=== PATIENT | female | born 1950 | race Caucasian/White ===

== ENCOUNTER → 2019-06-08 | Outpatient (CLI) | payer BC ==
[2019-05-19 14:38] VITALS: BP 151/86
[~2019-06-08] MED LIST: CONTRAST GIVEN. MC PRN; CYCL10TA2 PO; IOHEXOL 300 MG/ML 100ML VIAL. IV ONE; LOSA100T14 PO; METO-247 PO; Metoprolol PO; NAPR-514 PO; NAPR-695 PO; Nicotine 21MG TD; PANT40TA77 PO; POLY17PO28 PO; POTA20TA4 PO; TRAZ-123 PO
--- NOTE | 2019-06-08 09:51 | RAD ---
Examination: CT HEAD WO/W CONTRAST History: Non-small cell lung cancer Comparison/Correlation: None Findings: Axial images of the head were obtained prior to and following IV contrast. Coronal reformatted images of the postcontrast series is provided. Moderate size bifrontal subdural hygromas are present. Advanced atrophy is present. No intracranial hemorrhage, midline shift, or mass effect. No sizable aneurysm identified on postcontrast imaging. No abnormal enhancement to suggest the presence of a mass lesion. Enhancement is symmetric and unremarkable. Dominant right vertebral artery is seen. The vertebral artery is diminutive at its distal aspect. Bony structures are unremarkable. Globes and optic nerves are unremarkable. Extraconal muscles are unremarkable. Partially visualized paranasal sinuses are unremarkable. Mastoid air cells are clear. Impression: Moderate-sized bilateral frontal subdural hygromas. No mass lesion or suspicious enhancement identified. PQRS Compliance Statement: One or more of the following individualized dose reduction techniques were utilized for this examination: 1. Automated exposure control 2. Adjustment of the mA and/or kV according to patient size 3. Use of iterative reconstruction technique Electronically signed by: Fortino Puga MD (06/08/2019 9:48 AM) [facility]
--- NOTE | 2019-06-08 16:55 | RAD ---
EXAMINATION: PET W CT SKULL TO MIDTHIGH HISTORY: Non-small cell lung cancer initial staging COMPARISON/CORRELATION: 05/16/2019 CT chest without contrast, 05/13/2019 CT abdomen and pelvis with IV contrast FINDINGS: Net dose 14.4 mCi F-18 FDG was administered intravenously for purposes of PET/CT exam. Blood glucose level at the time of radiotracer administration was 108 mg/dL. Imaging was performed from the skull base to the proximal thighs. Hepatic reference uptake is SUV max of 1.8 . Uptake of the partially visualized head and neck is unremarkable. Incidental note is made of bifrontal subdural hygromas of moderate size. Right upper lobe mass corresponding to the previous CT exam which extends along the right side of the mediastinum and hilum to the anterolateral pleural is present with markedly intense uptake of radiotracer with SUV max up to 14.1. Enlarged precarinal lymph node conglomeration appears to have mildly increased in size measuring 2.9 cm x 3.8 cm on axial image 75 since the prior exam. This represents an increase in size of 0.3 cm x 0.5 cm. SUV max of 15 is present. Right lower paratracheal lymph nodes are present with abnormal uptake. Right hilar uptake is evident at the site of a calcified mass or calcified lymph nodes. This has SUV max of 13. At the right costophrenic sulcus, there is a 1.8 cm x 1.5 cm nodule which is increased in size since the previous exam by 0.8 cm x 0.5 cm. Intense uptake is present with SUV max of 11.5. Notable increase in 2 additional right lower lung field nodules since 05/13/2019 CT abdomen and pelvis with contrast is noted. One of these nodules on axial image 102 of series 3 measures 1 cm x 0.8 cm compared to the previous exam which this finding measured up to 0.33 cm in maximum diameter. An additional more medially located right lung field nodule on the same image currently measures up to 0.9 cm whereas previously it measured 0.6 cm. Intense uptake at these nodules is present with SUV maximum of 3.9. Left suprahilar spiculated mass is again seen. At the midthoracic level, there is a juxtapleural nodule measuring 0.9 cm diameter which is increased by 0.2 cm compared to the prior exam. Additional left lower lung field nodules are also present more inferiorly and these also have increased in size since the prior exam. One of these on axial image 105 measures 1.6 cm x 1 cm compared to previously where it measured 0.83 cm x 0.73 cm. Intense uptake noted. Substernal pulmonary nodules at the midthoracic level also has intense uptake. Centrilobular emphysematous involvement of the lung dawn noted. The inferior aspect of the right hepatic lobe, intense uptake is present with SUV max of 14.6. Cholecystectomy noted. Contrast incidentally seen within the kidneys, ureters, and urinary bladder from earlier performed CT exam. No other foci of abnormal uptake involving the abdomen or pelvis. Nodularity of the adrenal glands is present without significant uptake and as a result this very likely benign adenomatous involvement. Incidental note is made of significant calcific involvement of the distal abdominal aorta and iliac arteries. Diverticulosis of the colon is seen. Left buttock region spinal stimulator device with leads terminating at the low thoracic spine canal level noted. No abnormal uptake at the body compression deformity. No abnormal uptake at the T12 wedge compression deformity. Degenerative disc space narrowing of the lumbar spine noted at multiple levels. IMPRESSION: Large right upper midlung mass is present with intense uptake. Decreased atelectasis about the mass in the interval seen. Multiple pulmonary nodules have intense uptake and many have increased in size. Lymphadenopathy is identified with intense uptake and also has increased in size. Findings are compatible with patient's known non-small cell lung cancer and metastases. Considering the significant increase in size of the pulmonary nodules and some of the mediastinal lymph nodes and in the few weeks since the prior CT exams, infectious etiology should be considered. Uptake involving the right hepatic lobe inferiorly is intense compatible with metastatic or other neoplastic process. PQRS Compliance Statement: One or more of the following individualized dose reduction techniques were utilized for this examination: 1. Automated exposure control 2. Adjustment of the mA and/or kV according to patient size 3. Use of iterative reconstruction technique Electronically signed by: Fortino Puga MD (06/08/2019 4:52 PM) [facility]
== END | disposition home or self-care (01) ==
LOC: PETSC 07:29
PROVIDERS: ATTEND Internal Medicine Hematology & Oncology
DX: G96.0 Cerebrospinal fluid leak (principal); J43.2 Centrilobular emphysema; K57.30 Diverticulosis of large intestine without perforation or abscess without bleeding; C34.11 Malignant neoplasm of upper lobe, right bronchus or lung; Z90.49 Acquired absence of other specified parts of digestive tract
CPT/HCPCS: 70470; 78815; A9552; Q9967

== ENCOUNTER 2019-06-14 08:45 | Outpatient (CLI) | payer BC ==
[~2019-06-14] VITALS: Ht 157.5 cm; Wt 45.8 kg
[2019-06-14] VITALS (8 sets, daily range): BP systolic 131–164; BP diastolic 68–95
[~2019-06-14 08:45] MED LIST changes: -CONTRAST GIVEN. MC PRN; -IOHEXOL 300 MG/ML 100ML VIAL. IV ONE; -NAPR-514 PO
[2019-06-14] MEDS ORDERED: LIDOCAINE 1%/EPI 1:100,000 20 ML VIAL. ONE (08:59)
[2019-06-14] MEDS ORDERED: HEPARIN PF 500 UNIT/5 ML DISP.SYRIN. IVP ONE (08:59)
[2019-06-14 09:22] LABS: BASO # 0.1 x10^3/uL (0.0-0.2); BASO % 1 % (0-3); EOS # 0.8 x10^3/uL (0.0-0.7); EOS % 10 % (0-3); HEMATOCRIT 44.5 % (36.0-47.0); HEMOGLOBIN 14.7 g/dL (12.0-15.5); LYMPH # 1.2 x10^3/uL (1.0-4.8); LYMPH % 13 % (24-48); MEAN CORPUSCULAR HEMOGLOBIN 30 pg (25-35); MEAN CORPUSCULAR HGB CONC 33 g/dL (31-37); MEAN CORPUSCULAR VOLUME 91 fL (79-100); MONO # 0.6 x10^3/uL (0.0-1.1); MONO % 7 % (0-9); NEUT # 6.2 x10^3/uL (1.8-7.7); NEUT % 70 % (31-73); PLATELET COUNT 207 x10^3/uL (140-400); RED BLOOD COUNT 4.88 x10^6/uL (3.50-5.40); RED CELL DISTRIBUTION WIDTH 14.9 % (11.5-14.5); WHITE BLOOD COUNT 8.9 x10^3/uL (4.0-11.0)
[2019-06-14] MEDS ORDERED: CYCL10TA2 PO (09:30)
[2019-06-14] MEDS ORDERED: NAPR-514 PO (09:30)
[2019-06-14] MEDS ORDERED: ceFAZolin SODIUM IV Push 1 GM VIAL. IVP ONE ×2 (09:49→10:15)
[2019-06-14] MEDS ORDERED: MIDAZOLAM HCL/PF 2 MG/2 ML VIAL. ONE (09:49)
[2019-06-14] MEDS ORDERED: fentaNYL PF VIAL 100 MCG/2 ML VIAL ONE (09:49)
[2019-06-14] MEDS ORDERED: LIDOCAINE 1%/EPI 1:100,000 20 ML VIAL. INJ ONE (10:15)
[2019-06-14] MEDS ORDERED: MIDAZOLAM HCL/PF 2 MG/2 ML VIAL. IV ONE (10:15)
[2019-06-14] MEDS ORDERED: fentaNYL PF VIAL 100 MCG/2 ML VIAL IV ONE (10:15)
[2019-06-14] MEDS ORDERED: HEPARIN PF 500 UNIT/5 ML DISP.SYRIN. IVP PRN (10:15)
--- NOTE | 2019-06-14 10:40 | PDOC ---
MODERATE SEDATION ASSESSMENT RISKS/ALTERNATIVES Risks/Alternatives Risks and alternatives of this type of sedation and procedure discussed with: RISK/ALTERNATIVES: Patient H & P ON CHART H & P H & P on chart and reviewed for co-morbid conditions and appropriate labs. H&P ON CHART: Yes STATUS PREG STATUS ASSESSED: Yes MEDS/ALLERGIES REVIEWED Meds/Allergies Reviewed Medications and Allergies including time and route of recently administered narcotics and sedatives. MEDS/ALLERGIES REVIEWED: Yes ASA RATING ASA RATING: II AIRWAY ASSESSMENT Airway Assessment Airway patency, oral function limitations, presence of caps, crowns, dentures, partials, and ability to extend neck assessed. AIRWAY ASSESSMENT: Yes MALLAMPATI SCORE MALLAMPATI SCORE: II PRE-SEDATION ASSESSMENT PRE-SEDATION ASSESSMENT: Yes MIREYA MELENDREZ MD June 14, 2019 10:40
--- NOTE | 2019-06-14 10:40 | PDOC ---
BRIEF OPERATIVE NOTE Pre-Op Diagnosis lung cancer Post-Op Diagnosis same Procedure Performed Port Surgeon Meenakshi Anesthesia Type: Conscious Sedation Findings left IJ port suitable for use Complications None MIREYA MELENDREZ MD June 14, 2019 10:40
--- NOTE | 2019-06-14 13:47 | RAD ---
Procedure: Port-A-Cath placement Clinical Indication: Adult female with lung cancer Sedation: Conscious sedation was administered with a total intraprocedural ilha-hw-[id number] time of 30 minutes. The patient was monitored by a qualified independent observer throughout the time of sedation. Please refer to the medical record for exact doses of medications utilized to achieve moderate sedation. Antibiotics: Antibiotic was administered intravenously within 1 hour of the procedure start time. Exposure: Fluoro Time: Less than 1 minute Images: 1 Contrast: None Sterility: All elements of maximal sterile barrier technique including the use of a cap, mask, sterile gown, sterile gloves, large sterile sheet, appropriate hand hygiene, and 2% chlorhexidine for cutaneous antisepsis (or acceptable alternative antiseptic per current guidelines) were followed for this procedure. Consent: The procedure was explained in its entirety to the patient or the patients designated operations representative by a member of the treatment team, including a discussion of the risks, benefits and commonly accepted alternatives to the procedure, as well as the expected consequences of no therapy whatsoever. Discussion of the risks included, but was not limited to, those that are most frequent and those that are rare but possibly severe or life-threatening, as well as the possibility of unforeseen complications. Technique and Findings: Ultrasound interrogation of the left neck revealed patency and compressibility of the internal jugular vein. A hardcopy ultrasound image was recorded as a 21-gauge micropuncture needle was used to gain access to this vessel. The needle was exchanged over a wire for a peel-away sheath. The skin over the ipsilateral anterior chest wall was then copiously anesthetized with 1% lidocaine plus epinephrine, and a small dermatotomy was made. Blunt dissection techniques were used to create a pocket for the port. The port was then tunneled subcutaneously towards the neck dermatotomy then deployed under fluoroscopic guidance through the peel-away sheath such that the distal tip resided in the proximal right atrium. The port was accessed and found to flush and aspirate with ease. The port was packed with heparin. The pocket was copiously irrigated with sterile saline then closed with deep interrupted and running subcuticular 4-0 Vicryl suture. Dermabond was used to close the neck dermatotomy. Complications: No immediate Impression: 1. Ultrasound and fluoroscopic guided left IJ Port-A-Cath placement as described.
== END 2019-06-14 12:45 | disposition home or self-care (01) ==
LOC: INTRAD 08:45
PROVIDERS: ATTEND Internal Medicine Hematology & Oncology
DX: Z45.2 Encounter for adjustment and management of vascular access device (principal); C34.90 Malignant neoplasm of unspecified part of unspecified bronchus or lung; Z79.01 Long term (current) use of anticoagulants
CPT/HCPCS: 36415; 36561; 76937; 77001; 85025; 85610; 99152; 99153; C1751; C1769; C1892; J0690; J1642; J2250; J3010; J3490

== ENCOUNTER 2019-06-26 12:55 | Emergency (ER) | payer BC ==
[~2019-06-26] VITALS: Ht 157.5 cm; Wt 46.8 kg
[~2019-06-26 12:55] MED LIST changes: +NAPR-514 PO
[2019-06-26 13:10] VITALS: BP 162/77
--- NOTE | 2019-06-26 14:00 | PHYS DOC ---
Past Medical History Past Medical History: Cancer, COPD, Hypertension, Other Additional Past Medical Histor: LUNG CA Past Surgical History: No Surgical History Smoking Status: Current Every Day Smoker Alcohol Use: Occasionally General Adult EDM: Chief Complaint: OTHER COMPLAINTS HPI: HPI: 69-year-old female past medical history of newly diagnosed lung cancer started on chemo and radiation 1 week ago (1 round of chemo, 5 radiation txs), tobacco dependence with COPD on 2 L nasal cannula, presents to the ED from her radiation appointment with concern for low pulse oximetry. Patient arrived to the clinic without her baseline 2 L nasal cannula saturating in the 70s. 1 2 L nasal cannula was added she increased to 98%. Patient presented to the ED stating "I don't know why I am here, I feel fine." Pt reports she's tired after radiation and is requesting to go home and sleep. [facility] department sent to rule out PE. She was discharged from the hospital approximately 1 week ago due to alcohol induced pancreatitis-this is how her cancer was diagnosed. Patient denied and currently denies any fever, chills, sore throat, cough, chest pain or pressure or heaviness, dyspnea, hemoptysis, dyspnea on exertion, syncope, headache, leg swelling, neck stiffness, nausea, vomiting, diaphoresis or neurologic deficits. Review of Systems: Review of Systems: Constitutional: Denies fever or chills. [] Eyes: Denies change in visual acuity. [] HENT: Denies nasal congestion or sore throat. [] Respiratory: Denies cough or shortness of breath. [] Cardiovascular: Denies chest pain or edema. [] GI: Denies abdominal pain, nausea, vomiting, bloody stools or diarrhea. [] : Denies dysuria. [] Musculoskeletal: Denies back pain or joint pain. [] Integument: Denies rash. [] Neurologic: Denies headache, focal weakness or sensory changes. [] Endocrine: Denies polyuria or polydipsia. [] Lymphatic: Denies swollen glands. [] Psychiatric: Denies depression or anxiety. [] Allergies: Allergies: Allergies Coded Allergies Type Severity Reaction Last Updated Verified No Known Drug Allergies 06/19/19 No Physical Exam: PE: Constitutional: Well developed, well nourished, no acute distress, non-toxic appearance. [] HENT: Normocephalic, atraumatic, bilateral external ears normal, oropharynx moist, no oral exudates, nose normal. [] Eyes: PERRLA, EOMI, conjunctiva normal, no discharge. [] Neck: Normal range of motion, no tenderness, supple, no stridor. [] Cardiovascular:Heart rate regular rhythm, no murmur [] Lungs & Thorax: Bilateral breath sounds clear to auscultation, 98% on 2LNC Abdomen: Bowel sounds normal, soft, no tenderness, no masses, no pulsatile masses. [] Skin: Warm, dry, no erythema, no rash. [] Back: No tenderness, no CVA tenderness. [] Extremities: No tenderness, no cyanosis, no clubbing, ROM intact, no edema. [] Neurologic: Alert and oriented X 3, normal motor function, normal sensory function, no focal deficits noted. [] Psychologic: Affect normal, judgement normal, mood normal. [] Current Patient Data: Vital Signs: Vital Signs Date Time Temp Pulse Resp B/P (MAP) Pulse Ox O2 Delivery O2 Flow Rate FiO2 06/26/19 13:10 98.2 62 20 162/77 (105) 95 Nasal Cannula 2.0 98.2 EKG: EKG: [] Radiology/Procedures: Radiology/Procedures: IMAGING REPORT Signed PATIENT: CHICHI DE JESUS ACCOUNT: [id number] : 1950 LOCATION: ER AGE: 69 SEX: F EXAM STATUS: REG ER ORD. PHYSICIAN: SCOTTIE GARCIA DO REASON: desat and lung cancer PROCEDURE: CHEST AP ONLY CHEST AP ONLY 06/26/2019 1:18 PM INDICATION: Desaturation and 1 cancer COMPARISON: 05/19/2019 TECHNIQUE: Portable frontal view of the chest is provided. FINDINGS: The cardiomediastinal silhouette is within normal limits. Left chest wall infusion port catheter is identified with the distal tip projecting over the ventral junction. Spinal epidural leads are similar in position. There is increased consolidative change in the right upper lobe which may represent a postobstructive pneumonia or atelectasis. Previously seen masslike area of nodular consolidation in the right hilar distribution is obscured by surrounding consolidative change. There is increased nodular consolidation in the lung bases bilaterally. Small right pleural effusion with adjacent aggressive atelectasis versus infiltrate. No significant pulmonary vascular congestion or pneumothorax. Right apical pleural-parenchymal scarring is identified. No suspicious osseous abnormality. IMPRESSION: Interval increase in multifocal nodular airspace consolidation with more confluent consolidative change in the right upper lobe suspicious for postobstructive pneumonia or atelectasis with underlying progression of disease. Electronically signed by: Britt Vargas MD (06/26/2019 1:55 PM) [id number] DICTATED and SIGNED BY: BRITT VARGAS MD DATE: 06/26/19 [id number] Impression: Impression: Encounter for low pulse ox after noncompliance with NC-improved to baseline with 2L NC. Pt asymptomatic. Patient with medical decision-making capacity -would not wait for imaging results or discharge papers. Thinks ed visit is ridiculous stating "I'm tired, I just want to go home and sleep, I have no shortness of breath or chest pain). Pt left ama, would not wait for her DC papers. Encouraged strict ed return precautions for chest pain/dyspnea/sycnope. All of pts' questions were answered. Course & Med Decision Making: Course & Med Decision Making Pertinent Labs and Imaging studies reviewed. (See chart for details) Dragon Disclaimer: DragKiip Disclaimer: This electronic medical record was generated, in whole or in part, using a voice recognition dictation system. Departure Departure Impression: Primary Impression: Lung cancer Additional Impression: Abnormal pulse oximetry Disposition: 07 AGAINST MEDICAL ADVICE Condition: STABLE Referrals: MARÍA FRAGA MD (PCP) Patient Instructions: Oxygen Use at Home SCOTTIE GARCIA DO June 26, 2019 14:00
== END 2019-06-26 14:05 | disposition home or self-care (01) ==
LOC: ER 12:55
DX: C34.90 Malignant neoplasm of unspecified part of unspecified bronchus or lung (principal); R00.2 Palpitations; K85.20 Alcohol induced acute pancreatitis without necrosis or infection; J44.9 Chronic obstructive pulmonary disease, unspecified; I10 Essential (primary) hypertension; F17.200 Nicotine dependence, unspecified, uncomplicated
CPT/HCPCS: 71045; 99283

== ENCOUNTER → 2019-06-28 | Outpatient (CLI) | payer BC ==
[2019-06-26 13:10] VITALS: BP 162/77
[~2019-06-28] MED LIST changes: +CONTRAST GIVEN. MC PRN; +HEPARIN PF 500 UNIT/5 ML DISP.SYRIN. IVP ONE; +IOHEXOL 300 MG/ML 100ML VIAL. IV ONE
--- NOTE | 2019-06-28 13:23 | RAD ---
PQRS Compliance Statement: One or more of the following individualized dose reduction techniques were utilized for this examination: 1. Automated exposure control 2. Adjustment of the mA and/or kV according to patient size 3. Use of iterative reconstruction technique CT CHEST W/CONTRAST 06/28/2019 12:23 PM Indication: Non-small cell lung cancer COMPARISON: None available. TECHNIQUE: Multiple axial CT images of the chest were obtained after the intravenous administration of nonionic contrast. Coronal and sagittal reformats are provided. FINDINGS: Precarinal lymph node measures 3.9 x 3.2 cm, previously measuring 4.6 x 3.0 cm. AP window lymph node measures 3.4 x 2.0 cm, previously measuring 3.6 x 2.4 cm. There is increased consolidative change in the right upper lobe with likely increased postobstructive atelectasis versus pneumonitis. Enhancing masslike area of consolidation measures approximately 5.7 x 6.8 cm right hilar lymphadenopathy appears similar. There is increased adjacent interstitial thickening involving the posterior right upper lobe and superior segment right lower lobe. Interstitial pneumonitis is a differential consideration as is lymphangitic spread of tumor. There is a persistent small right pleural effusion, increased since prior examination. Solid noncalcified pulmonary nodules have increased in size. For example right lower lobe solid noncalcified pulmonary nodule measures 2.2 x 1.9 cm, previously measuring 1.6 x 1.6 cm on 06/08/2019 (series 2, image 47). Left lower lobe solid noncalcified pulmonary nodule has increased in size measuring 2.1 x 1.9 cm, previously measuring 1.6 x 1.5 cm. Heart size within normal limits. Left chest wall infusion catheter is in similar position. Pulmonary vasculature is intact. Thoracic aorta is ectatic measuring up to 3.4 cm the aortic arch. Right adrenal nodule is stable measuring 1.9 x 1.0 cm. No definite hepatic masses are identified. Stable inferior plate compression fracture at T10 with mild retropulsion. No suspicious osseous abnormality is identified. IMPRESSION: 1. Marginal decrease in size of mediastinal lymphadenopathy. 2. Multifocal solid noncalcified pulmonary nodules are increased in size as detailed above. 3. Small right pleural effusion, increased in size. Next on 4. Increased interstitial airspace disease in the right upper lobe and super segment right lower lobe. Aeration may be given for interstitial pneumonitis versus composed lymphangitic spread of tumor. Pulmonary emphysematous changes appear stable. 5. Stable right adrenal nodule. Electronically signed by: Mable Anne MD (06/28/2019 1:20 PM) [facility]
== END | disposition home or self-care (01) ==
LOC: CT 11:27
PROVIDERS: ATTEND Physician Assistant
DX: C34.11 Malignant neoplasm of upper lobe, right bronchus or lung (principal); J90 Pleural effusion, not elsewhere classified; R91.8 Other nonspecific abnormal finding of lung field; R59.0 Localized enlarged lymph nodes; E27.8 Other specified disorders of adrenal gland
CPT/HCPCS: 71260; Q9967

== ENCOUNTER → 2019-07-06 | Outpatient (CLI) | payer BC ==
[2019-06-26 13:10] VITALS: BP 162/77
[~2019-07-06] MED LIST changes: -CONTRAST GIVEN. MC PRN; -HEPARIN PF 500 UNIT/5 ML DISP.SYRIN. IVP ONE; -IOHEXOL 300 MG/ML 100ML VIAL. IV ONE
--- NOTE | 2019-07-17 12:07 | RESP ---
DATE OF SERVICE: 07/06/2019 SPIROMETRY REFERRED BY: Ana Culver PA-C The patient's FVC was 2.2, which is 76% predicted, FEV1 of 1.32, which is 62% predicted. FEV1/FVC ratio was reduced. No bronchodilators were given. The patient complained of lightheadedness and dizzy and also felt nauseous as a result. Diffusion capacity and lung volumes were not performed. IMPRESSION: 1. Spirometry findings consistent with moderate obstructive airway disease. 2. No bronchodilators given. MANPREET HARDEN MD DR: ALISON/abdullahi JOB#: [id number] / [id number] ANA Reilly PA-C
== END | disposition home or self-care (01) ==
LOC: PF 10:30
PROVIDERS: ATTEND Physician Assistant
DX: C34.11 Malignant neoplasm of upper lobe, right bronchus or lung (principal)
CPT/HCPCS: 94010

== ENCOUNTER → 2019-07-24 | Outpatient (CLI) | payer BC ==
[2019-06-26 13:10] VITALS: BP 162/77
[2019-07-24 12:03] LABS: CALCIUM 8.6 mg/dL (8.5-10.1); CREATININE 0.9 mg/dL (0.6-1.0); GFR 62.3; POTASSIUM 3.9 mmol/L (3.5-5.1)
[2019-07-24 12:09] LABS: ALBUMIN 2.5 g/dL (3.4-5.0); DIRECT BILIRUBIN 0.2 mg/dL (0.0-0.2); TOTAL BILIRUBIN 0.6 mg/dL (0.2-1.0); TOTAL PROTEIN 5.3 g/dL (6.4-8.2)
[2019-07-24 12:19] LABS: BASO % 0 % (0-3); EOS # 0.3 x10^3/uL (0.0-0.7); EOS % 4 % (0-3); HEMATOCRIT 40.7 % (36.0-47.0); HEMOGLOBIN 13.5 g/dL (12.0-15.5); LYMPH # 0.5 x10^3/uL (1.0-4.8); LYMPH % 6 % (24-48); MEAN CORPUSCULAR HEMOGLOBIN 30 pg (25-35); MEAN CORPUSCULAR HGB CONC 33 g/dL (31-37); MEAN CORPUSCULAR VOLUME 90 fL (79-100); MONO # 0.5 x10^3/uL (0.0-1.1); MONO % 6 % (0-9); NEUT # 6.6 x10^3/uL (1.8-7.7); NEUT % 84 % (31-73); PLATELET COUNT 129 x10^3/uL (140-400); RED BLOOD COUNT 4.55 x10^6/uL (3.50-5.40); RED CELL DISTRIBUTION WIDTH 16.3 % (11.5-14.5); WHITE BLOOD COUNT 7.8 x10^3/uL (4.0-11.0)
== END | disposition home or self-care (01) ==
LOC: SPEC 10:21
PROVIDERS: ATTEND Physician Assistant
DX: C34.11 Malignant neoplasm of upper lobe, right bronchus or lung (principal); I07.1 Rheumatic tricuspid insufficiency; I27.20 Pulmonary hypertension, unspecified; I05.9 Rheumatic mitral valve disease, unspecified
CPT/HCPCS: 36415; 80048; 80076; 83615; 84436; 84443; 85025

== ENCOUNTER → 2019-07-25 | Outpatient (CLI) | payer BC ==
[2019-06-26 13:10] VITALS: BP 162/77
--- NOTE | 2019-07-25 13:54 | CARD ---
MR#: [id number] Date of Study: 07/25/2019 Ordering Physician: ANA MOELLER, Referring Physician: ANA MOELLER, Tech: Kaylyn Mohamud MAXI APPROVED REPORT EXAM: Two-dimensional and M-mode echocardiogram with Doppler and color Doppler. Other Information Quality : Good INDICATION Peripheral Edema Lung Cancer 2D DIMENSIONS RVDd2.7 (2.9-3.5cm)Left Atrium(2D)3.0 (1.6-4.0cm) IVSd1.1 (0.7-1.1cm)Aortic Root(2D)2.5 (2.0-3.7cm) LVDd3.7 (3.9-5.9cm)LVOT Diameter1.9 (1.8-2.4cm) PWd0.9 (0.7-1.1cm)LVDs2.4 (2.5-4.0cm) FS (%) 35.0 %SV38.9 ml LVEF(%)65.1 (>50%) Aortic Valve AoV Peak Robb.146.4cm/sAoV VTI35.7cm AO Peak GR.8.6mmHgLVOT Peak Robb.124.1cm/s AO Mean GR.5mmHgAVA (VMAX)2.43cm2 MAXIM (VTI)2.60cm2 Mitral Valve MV E Dwioajfr02.4cm/sMV DECEL KECK193rc MV A Xobubbzx564.4cm/sE/A Ratio0.7 Tricuspid Valve TR P. Magupzkt835fy/sRAP [id number] TR Peak Gr.51ozSeBXHF69urGz Pulmonary Vein S1 Tezmqecx58.5cm/sD2 Obbdotqt40.4cm/s LEFT VENTRICLE The left ventricle cavity is small. There is normal left ventricular wall thickness. The left ventric ular systolic function is normal. The Ejection Fraction is 60-65%. There is normal LV segmental wall motion. Transmitral Doppler flow pattern is Grade I-abnormal relaxation pattern. RIGHT VENTRICLE The right ventricle is normal size. The right ventricular systolic function is normal. ATRIA The left atrium size is normal. The right atrium size is normal. The interatrial septum is intact wit h no evidence for an atrial septal defect or patent foramen ovale as noted on 2-D or Doppler imaging. AORTIC VALVE The aortic valve is calcified but opens well. Doppler and Color Flow revealed no significant aortic r egurgitation. There is no significant aortic valvular stenosis. MITRAL VALVE The mitral valve is calcified but opens well. Mitral annular calcification is mild. There is no evide nce of mitral valve prolapse. There is no mitral valve stenosis. Doppler and Color-flow revealed trac e mitral regurgitation. TRICUSPID VALVE The tricuspid valve is normal in structure and function. Doppler and Color Flow revealed mild tricusp id regurgitation. There is moderate-severe pulmonary hypertension. The PA pressure was estimated at 6 0 mmHg. There is no tricuspid valve stenosis. PULMONIC VALVE The pulmonic valve is not well visualized. Doppler and Color Flow revealed trace pulmonic valvular re gurgitation. There is no pulmonic valvular stenosis. GREAT VESSELS The aortic root is normal in size. The ascending aorta is not well seen. The IVC is normal in size an d collapses >50% with inspiration. PERICARDIAL EFFUSION There is no evidence of significant pericardial effusion. Critical Notification Critical Value: No <Conclusion> The left ventricular systolic function is normal. The Ejection Fraction is 60-65%. There is normal LV segmental wall motion. Transmitral Doppler flow pattern is Grade I-abnormal relaxation pattern. Trace mitral regurgitation. Mild tricuspid regurgitation. The PA pressure was estimated at 60 mmHg. There is no evidence of significant pericardial effusion. Signed by : Chuck Hanson, Electronically Approved : 07/25/2019 13:53:58
--- NOTE | 2019-07-25 14:04 | RAD ---
VENOUS LOWER EXT BILATERAL 07/25/2019 2:00 PM Clinical Information: Bilateral lower extremity swelling. Comparison: None. Technique: Multiple grayscale, color Doppler, and spectral Doppler sonographic images of the lower extremity venous structures were obtained. Findings: The right common femoral, femoral, and popliteal veins exhibit normal compression, respiratory phasicity, and augmentation. No intraluminal thrombi are identified. Color Doppler flow is demonstrated in the right posterior tibial veins. The left common femoral, femoral, and popliteal veins exhibit normal compression, respiratory phasicity, and augmentation. No intraluminal thrombi are identified. Color Doppler flow is demonstrated in the left posterior tibial veins. Greater saphenous veins are patent at the saphenofemoral junction. Impression: 1. No evidence of deep venous thrombosis. Electronically signed by: Mable Anne MD (07/25/2019 2:01 PM) [facility]
== END | disposition home or self-care (01) ==
LOC: ECHO 12:42
PROVIDERS: ATTEND Physician Assistant
DX: I07.1 Rheumatic tricuspid insufficiency (principal); C34.11 Malignant neoplasm of upper lobe, right bronchus or lung; I27.20 Pulmonary hypertension, unspecified
CPT/HCPCS: 93306; 93970

== ENCOUNTER → 2019-08-02 | Outpatient (CLI) | payer BC ==
[2019-08-02 13:11] LABS: BASO % 0 % (0-3); EOS % 0 % (0-3); HEMATOCRIT 36.2 % (36.0-47.0); HEMOGLOBIN 12.5 g/dL (12.0-15.5); LYMPH # 0.6 x10^3/uL (1.0-4.8); LYMPH % 10 % (24-48); MEAN CORPUSCULAR HEMOGLOBIN 31 pg (25-35); MEAN CORPUSCULAR HGB CONC 35 g/dL (31-37); MEAN CORPUSCULAR VOLUME 89 fL (79-100); MONO # 0.2 x10^3/uL (0.0-1.1); MONO % 3 % (0-9); NEUT # 4.8 x10^3/uL (1.8-7.7); NEUT % 87 % (31-73); PLATELET COUNT 141 x10^3/uL (140-400); RED BLOOD COUNT 4.07 x10^6/uL (3.50-5.40); RED CELL DISTRIBUTION WIDTH 17.1 % (11.5-14.5); WHITE BLOOD COUNT 5.6 x10^3/uL (4.0-11.0)
[2019-08-02 13:31] LABS: ALBUMIN 2.6 g/dL (3.4-5.0); CALCIUM 8.5 mg/dL (8.5-10.1); CREATININE 0.8 mg/dL (0.6-1.0); DIRECT BILIRUBIN 0.1 mg/dL (0.0-0.2); GFR 71.3; POTASSIUM 3.9 mmol/L (3.5-5.1); TOTAL BILIRUBIN 0.6 mg/dL (0.2-1.0); TOTAL PROTEIN 5.6 g/dL (6.4-8.2)
[2019-08-02 13:43] LABS: FREE T4 1.33 ng/dL (0.76-1.46); THYROID STIM HORMONE (TSH) 1.301 uIU/mL (0.358-3.74)
[2019-08-02 14:02] LABS: % BANDS 1 % (0-9); % LYMPHS 5 % (24-48); % MONOS 1 % (0-10); % SEGS 93 % (35-66)
[2019-08-02 14:03] LABS: ANISOCYTOSIS SLIGHT; PLT ESTIMATE ADEQUATE (ADEQUATE)
== END ==
LOC: ONCLAB 12:59
PROVIDERS: ATTEND Internal Medicine Hematology & Oncology
DX: C34.11 Malignant neoplasm of upper lobe, right bronchus or lung (principal)
CPT/HCPCS: 36415; 80048; 80076; 83615; 84439; 84443; 85007; 85025

== ENCOUNTER → 2019-08-09 | Outpatient (CLI) | payer BC ==
[2019-08-09 11:14] LABS: BASO % 0 % (0-3); EOS # 0.1 x10^3/uL (0.0-0.7); EOS % 2 % (0-3); HEMATOCRIT 37.3 % (36.0-47.0); HEMOGLOBIN 12.8 g/dL (12.0-15.5); LYMPH # 0.4 x10^3/uL (1.0-4.8); LYMPH % 5 % (24-48); MEAN CORPUSCULAR HEMOGLOBIN 31 pg (25-35); MEAN CORPUSCULAR HGB CONC 34 g/dL (31-37); MEAN CORPUSCULAR VOLUME 89 fL (79-100); MONO # 0.2 x10^3/uL (0.0-1.1); MONO % 3 % (0-9); NEUT # 6.3 x10^3/uL (1.8-7.7); NEUT % 90 % (31-73); PLATELET COUNT 181 x10^3/uL (140-400); RED BLOOD COUNT 4.19 x10^6/uL (3.50-5.40); RED CELL DISTRIBUTION WIDTH 18.4 % (11.5-14.5)
[2019-08-09 11:26] LABS: CALCIUM 8.6 mg/dL (8.5-10.1); CREATININE 0.9 mg/dL (0.6-1.0); GFR 62.3
[2019-08-09 11:32] LABS: ALBUMIN 2.9 g/dL (3.4-5.0); DIRECT BILIRUBIN 0.2 mg/dL (0.0-0.2); TOTAL BILIRUBIN 0.7 mg/dL (0.2-1.0)
== END ==
LOC: ONCLAB 10:49
PROVIDERS: ATTEND Physician Assistant
DX: C34.11 Malignant neoplasm of upper lobe, right bronchus or lung (principal)
CPT/HCPCS: 36415; 80048; 80076; 83615; 85025

== ENCOUNTER → 2019-08-14 | Outpatient (CLI) | payer BC | END | disposition home or self-care (01) | LOC: PF 08:49 | PROVIDERS: ATTEND Physician Assistant | DX: C34.11 Malignant neoplasm of upper lobe, right bronchus or lung (principal) | CPT/HCPCS: 94060; 94640; 94726; 94729; 94664 ==

== ENCOUNTER → 2019-08-16 | Outpatient (CLI) | payer BC ==
[2019-08-16 08:43] LABS: BASO % 1 % (0-3); EOS # 0.2 x10^3/uL (0.0-0.7); EOS % 3 % (0-3); HEMOGLOBIN 12.5 g/dL (12.0-15.5); LYMPH # 0.6 x10^3/uL (1.0-4.8); LYMPH % 10 % (24-48); MEAN CORPUSCULAR HEMOGLOBIN 31 pg (25-35); MEAN CORPUSCULAR HGB CONC 34 g/dL (31-37); MEAN CORPUSCULAR VOLUME 90 fL (79-100); MONO # 0.5 x10^3/uL (0.0-1.1); MONO % 8 % (0-9); NEUT # 4.5 x10^3/uL (1.8-7.7); NEUT % 78 % (31-73); PLATELET COUNT 173 x10^3/uL (140-400); RED BLOOD COUNT 4.12 x10^6/uL (3.50-5.40); WHITE BLOOD COUNT 5.8 x10^3/uL (4.0-11.0)
[2019-08-16 08:54] LABS: CALCIUM 8.9 mg/dL (8.5-10.1); CREATININE 0.6 mg/dL (0.6-1.0); GFR 99.4; POTASSIUM 3.3 mmol/L (3.5-5.1)
[2019-08-16 09:07] LABS: ALBUMIN 2.9 g/dL (3.4-5.0); ALBUMIN/GLOBULIN RATIO 0.9 (1.0-1.7); TOTAL BILIRUBIN 0.7 mg/dL (0.2-1.0); TOTAL PROTEIN 6.1 g/dL (6.4-8.2)
== END ==
LOC: ONCLAB 08:01
PROVIDERS: ATTEND Internal Medicine Hematology & Oncology
DX: C34.11 Malignant neoplasm of upper lobe, right bronchus or lung (principal)
CPT/HCPCS: 36415; 80053; 83615; 85025

== ENCOUNTER 2019-08-23 10:23 | Emergency (ER) | payer BC ==
[~2019-08-23] VITALS: Ht 157.5 cm; Wt 41.8 kg
--- NOTE | 2019-08-23 11:23 | RAD ---
STUDY: CT head without contrast INDICATION: Trauma with injury to the right eye. COMPARISON: None. TECHNIQUE: Axial CT imaging through the head without the use of intravenous contrast. Sagittal and coronal reformats were obtained. One or more of the following individualized dose reduction techniques were utilized for this examination: 1. Automated exposure control 2. Adjustment of the mA and/or kV according to patient size 3. Use of iterative reconstruction technique. FINDINGS: No acute intracranial hemorrhage. Martins-white matter differentiation is maintained. No mass effect, midline shift or hydrocephalus. Frontal lobe predominant volume loss. White matter findings which are nonspecific but most frequently seen in setting of chronic microvascular ischemic change. Carotid siphon atherosclerotic calcifications. No retrobulbar hematoma. The visualized paranasal sinuses are normally aerated. Unremarkable mastoid air cells and middle ears. No depressed calvarial fracture. IMPRESSION: 1. No acute intracranial abnormality by CT. No depressed calvarial fracture and the visualized facial bones are intact. 2. Chronic/senescent findings as detailed above. Electronically signed by: PONCE RUBY MD (08/23/2019 11:20 AM) [id number]
[2019-08-23] MEDS ORDERED: amLODIPine BESYLATE 5 MG TABLET PO ONE (11:30)
[2019-08-23] MEDS ORDERED: HYDROcodone/APAP 5/325MG 1 TAB TABLET PO ONE (11:30)
[2019-08-23] MEDS ORDERED: ONDANSETRON ODT 4 MG TAB.RAPDIS. PO ONE (11:30)
--- NOTE | 2019-08-23 11:31 | RAD ---
KNEE LEFT 3V History: Reason: trauma.Pt states fell this am, pain to lateral aspect upper knee / Spl. Instructions: / History: Technique: 3 views left knee. Comparison: None. Findings: Normal alignment. No fracture. No significant knee joint effusion. Mild knee degenerative changes most prominent within the medial and patellofemoral compartments. Chondrocalcinosis. Impression: 1. No acute osseous abnormality. 2. Mild knee DJD with chondrocalcinosis. Electronically signed by: Parish Benito DO (08/23/2019 11:28 AM) [id number]
[2019-08-23 11:56] VITALS: BP 171/89
--- NOTE | 2019-08-23 12:04 | PHYS DOC ---
Past Medical History Past Medical History: Cancer, COPD, Hypertension, Other Additional Past Medical Histor: LUNG CA Past Surgical History: No Surgical History Smoking Status: Current Every Day Smoker Alcohol Use: Occasionally General Adult EDM: Chief Complaint: MECHANICAL FALL HPI: HPI: Patient is a 69 year old female who presents with chief complaint of fall. She was walking in to get chemotherapy she says she tripped. She remembers the fall she said that she had some things in her hands so she was hard for her to catch herself with her hands. She landed on her knee and then bumped her head. She adamantly denies loss of consciousness or syncope and the daughter agrees with that assessment. Triage nurse's notes reviewed as well. Patient has been feeling okay previous to this a little tired from the chemo but no fever no cough no shortness of breath otherwise stable pain is moderate left knee nonradiating Review of Systems: Review of Systems: Constitutional: Denies fever or chills. [] Eyes: Denies change in visual acuity. [] HENT: Denies nasal congestion or sore throat. [] Respiratory: Denies cough or shortness of breath. [] Cardiovascular: Denies chest pain or edema. [] GI: Denies abdominal pain, nausea, vomiting, bloody stools or diarrhea. [] Lymphatic: Denies swollen glands. [] Psychiatric: Denies depression or anxiety. [] Heart Score: Risk Factors: Risk Factors: DM, Current or recent (<one month) smoker, HTN, HLP, family history of CAD, obesity. Risk Scores: Score 0 - 3: 2.5% MACE over next 6 weeks - Discharge Home Score 4 - 6: 20.3% MACE over next 6 weeks - Admit for Clinical Observation Score 7 - 10: 72.7% MACE over next 6 weeks - Early Invasive Strategies Current Medications: Current Medications Medications (Trade) Dose Ordered Sig/Katharina Start Time Stop Time Status Last Admin Dose Admin Acetaminophen/ Hydrocodone Bitart (Lortab 5/325) 1 tab 1X ONCE 08/23/19 11:30 08/23/19 11:31 DC 08/23/19 11:14 1 TAB Amlodipine Besylate (Norvasc) 10 mg 1X ONCE 08/23/19 11:30 08/23/19 11:31 DC 08/23/19 11:14 10 MG Ondansetron HCl (Zofran Odt) 4 mg 1X ONCE 08/23/19 11:30 08/23/19 11:31 DC 08/23/19 11:13 4 MG Allergies: Allergies: Allergies Coded Allergies Type Severity Reaction Last Updated Verified No Known Drug Allergies 07/09/19 No Physical Exam: PE: Constitutional: Well developed, cachectic, no acute distress, non-toxic appearance. [] HENT: Normocephalic, superficial contusion to the forehead, bilateral external ears normal, oropharynx moist, no oral exudates, nose normal. [] Eyes: PERRLA, EOMI, conjunctiva normal, no discharge. [] Neck: Normal range of motion, no tenderness, supple, no stridor. [] Full neck motion noted with no tenderness of any kind Cardiovascular:Heart rate regular rhythm, no murmur [] Lungs & Thorax: Bilateral breath sounds clear to auscultation [] Abdomen: Bowel sounds normal, soft, no tenderness, no masses, no pulsatile masses. [] Skin: Warm, dry, no erythema, no rash. [] Back: No tenderness, no CVA tenderness. [] Extremities: Small to moderate knee effusion with no specific bony trauma Neurologic: Alert and oriented X 3, normal motor function, normal sensory function, no focal deficits noted. [] Psychologic: Affect normal, judgement normal, mood normal. [] Current Patient Data: Vital Signs: Vital Signs Date Time Temp Pulse Resp B/P (MAP) Pulse Ox O2 Delivery O2 Flow Rate FiO2 08/23/19 11:14 16 Nasal Cannula 2.0 08/23/19 11:14 57 201/96 08/23/19 10:25 97.2 97 97.2 EKG: EKG: [] Radiology/Procedures: Radiology/Procedures: [] Impression: Head CT and knee x-ray were negative acute Course & Med Decision Making: Course & Med Decision Making Pertinent Labs and Imaging studies reviewed. (See chart for details) 69-year-old female presenting with mechanical fall she is on chemo for lung cancer her oxygenation is adequate she had an elevated blood pressure to 201 systolic we gave amlodipine and pain medication and came down to the 170s imaging was negative patient gives a very clear story for mechanical fall I th ink she stable for discharge at this time reassured. Molly Disclaimer: Molly Disclaimer: This electronic medical record was generated, in whole or in part, using a voice recognition dictation system. Departure Departure Impression: Primary Impression: Knee injury Disposition: HOME, SELF-CARE Condition: STABLE Patient Instructions: Knee Pain, [id number] Justicifation of Admission Dx: Justifications for Admission: Justification of Admission Dx: N/A LEXI SORENSON MD Aug 23, 2019 12:04
== END 2019-08-23 12:21 | disposition home or self-care (01) ==
LOC: ER 10:23
DX: S00.83XA Contusion of other part of head, initial encounter (principal); S89.92XA Unspecified injury of left lower leg, initial encounter; M25.462 Effusion, left knee; M17.12 Unilateral primary osteoarthritis, left knee; M11.262 Other chondrocalcinosis, left knee; J44.9 Chronic obstructive pulmonary disease, unspecified; I10 Essential (primary) hypertension; F17.200 Nicotine dependence, unspecified, uncomplicated; W01.0XXA Fall on same level from slipping, tripping and stumbling without subsequent striking against object, initial encounter; Y93.01 Activity, walking, marching and hiking; Y92.89 Other specified places as the place of occurrence of the external cause; Y99.8 Other external cause status
CPT/HCPCS: 70450; 73562; 99285-25

== ENCOUNTER → 2019-08-23 | Outpatient (CLI) | payer BC ==
[2019-08-23 09:58] LABS: BASO % 0 % (0-3); EOS # 0.2 x10^3/uL (0.0-0.7); EOS % 2 % (0-3); HEMATOCRIT 38.8 % (36.0-47.0); HEMOGLOBIN 13.1 g/dL (12.0-15.5); LYMPH # 0.4 x10^3/uL (1.0-4.8); LYMPH % 5 % (24-48); MEAN CORPUSCULAR HEMOGLOBIN 31 pg (25-35); MEAN CORPUSCULAR HGB CONC 34 g/dL (31-37); MEAN CORPUSCULAR VOLUME 91 fL (79-100); MONO # 0.5 x10^3/uL (0.0-1.1); MONO % 6 % (0-9); NEUT # 6.9 x10^3/uL (1.8-7.7); NEUT % 86 % (31-73); PLATELET COUNT 190 x10^3/uL (140-400); RED BLOOD COUNT 4.27 x10^6/uL (3.50-5.40); RED CELL DISTRIBUTION WIDTH 19.4 % (11.5-14.5)
[2019-08-23 10:15] LABS: CALCIUM 9.1 mg/dL (8.5-10.1); CREATININE 0.8 mg/dL (0.6-1.0); GFR 71.3
[2019-08-23 10:23] LABS: ALBUMIN 3.1 g/dL (3.4-5.0); DIRECT BILIRUBIN 0.2 mg/dL (0.0-0.2); TOTAL BILIRUBIN 0.8 mg/dL (0.2-1.0); TOTAL PROTEIN 6.5 g/dL (6.4-8.2)
== END | disposition home or self-care (01) ==
LOC: ONCLAB 09:20
PROVIDERS: ATTEND Physician Assistant
DX: C34.11 Malignant neoplasm of upper lobe, right bronchus or lung (principal)
CPT/HCPCS: 36415; 80048; 80076; 83615; 85025

== ENCOUNTER → 2019-08-27 | Outpatient (CLI) | payer BC ==
[2019-08-23 11:56] VITALS: BP 171/89
--- NOTE | 2019-08-27 16:32 | RAD ---
EXAM: CHEST 2 VIEWS. HISTORY: Chest pain, lung cancer. COMPARISON: 06/26/2019. FINDINGS: A frontal view of the chest is obtained. A left-sided port catheter has its tip in the superior cavoatrial junction. A thoracic spinal stimulator is also noted. There are multiple chronic rib fractures bilaterally. No acute displaced fractures are identified. Multiple mild and moderate thoracic compression deformities are also noted. Multiple lung masses in the bases are consistent with metastatic disease. Posttreatment change is noted at the right hilum, decreased since the prior study. Hyperinflation is consistent with chronic obstructive pulmonary disease. There is no pneumothorax or pleural effusion. The heart is not enlarged. The aorta is calcified and tortuous. Cholecystectomy clips are noted. IMPRESSION: 1. No acute displaced rib fractures are seen. 2. Decreased right hilar mass. Multiple other lung nodules are not clearly changed. Electronically signed by: Emir Alva MD (08/27/2019 4:29 PM) [id number]
== END | disposition home or self-care (01) ==
LOC: RAD 14:26
PROVIDERS: ATTEND Internal Medicine Hematology & Oncology
DX: C34.11 Malignant neoplasm of upper lobe, right bronchus or lung (principal); J44.9 Chronic obstructive pulmonary disease, unspecified; R91.8 Other nonspecific abnormal finding of lung field; M84.48XA Pathological fracture, other site, initial encounter for fracture; M43.8X4 Other specified deforming dorsopathies, thoracic region; I70.0 Atherosclerosis of aorta; Q25.46 Tortuous aortic arch; Z90.49 Acquired absence of other specified parts of digestive tract
CPT/HCPCS: 71046

== ENCOUNTER → 2019-08-30 | Outpatient (CLI) | payer BC ==
[2019-08-23 11:56] VITALS: BP 171/89
[2019-08-30 10:02] LABS: CALCIUM 9.4 mg/dL (8.5-10.1); CREATININE 0.9 mg/dL (0.6-1.0); GFR 62.3
== END | disposition home or self-care (01) ==
LOC: ONCLAB 09:15
PROVIDERS: ATTEND Internal Medicine Hematology & Oncology
DX: C34.11 Malignant neoplasm of upper lobe, right bronchus or lung (principal)
CPT/HCPCS: 36415; 80048

== ENCOUNTER → 2019-09-06 | Outpatient (CLI) | payer BC ==
[2019-08-23 11:56] VITALS: BP 171/89
[2019-09-06 08:42] LABS: BASO % 1 % (0-3); EOS # 0.3 x10^3/uL (0.0-0.7); EOS % 4 % (0-3); HEMATOCRIT 37.8 % (36.0-47.0); HEMOGLOBIN 12.9 g/dL (12.0-15.5); LYMPH # 0.7 x10^3/uL (1.0-4.8); LYMPH % 10 % (24-48); MEAN CORPUSCULAR HEMOGLOBIN 31 pg (25-35); MEAN CORPUSCULAR HGB CONC 34 g/dL (31-37); MEAN CORPUSCULAR VOLUME 90 fL (79-100); MONO # 0.5 x10^3/uL (0.0-1.1); MONO % 7 % (0-9); NEUT % 79 % (31-73); PLATELET COUNT 247 x10^3/uL (140-400); RED BLOOD COUNT 4.18 x10^6/uL (3.50-5.40); RED CELL DISTRIBUTION WIDTH 18.4 % (11.5-14.5); WHITE BLOOD COUNT 7.6 x10^3/uL (4.0-11.0)
[2019-09-06 08:52] LABS: CALCIUM 9.3 mg/dL (8.5-10.1); CREATININE 0.6 mg/dL (0.6-1.0); GFR 99.4; POTASSIUM 3.7 mmol/L (3.5-5.1)
[2019-09-06 08:58] LABS: ALBUMIN 2.9 g/dL (3.4-5.0); ALBUMIN/GLOBULIN RATIO 0.8 (1.0-1.7); TOTAL BILIRUBIN 0.6 mg/dL (0.2-1.0); TOTAL PROTEIN 6.4 g/dL (6.4-8.2)
== END ==
LOC: ONCLAB 08:25
PROVIDERS: ATTEND Internal Medicine Hematology & Oncology
DX: C34.11 Malignant neoplasm of upper lobe, right bronchus or lung (principal)
CPT/HCPCS: 36415; 80053; 84443; 85025

== ENCOUNTER → 2019-09-07 | Outpatient (CLI) | payer BC ==
[2019-08-23 11:56] VITALS: BP 171/89
--- NOTE | 2019-09-07 14:32 | RAD ---
EXAM: PET W CT SKULL TO MIDTHIGH EXAM DATE: 09/07/2019 INDICATION: Restaging lung cancer RADIOPHARMACEUTICAL: 12.7 mCi of F-18 Fluorodeoxyglucose (FDG) I.V. via the right wrist. TECHNIQUE: Patient weight: 88 pounds. Following at least four-hour fasting, the patient's blood glucose was 113 mg/dl. Approximately 1 hour after administration of FDG, overlapping emission scanning was performed from the orbital meatal line through the pelvis. A low-dose CT was performed for attenuation correction purposes and anatomic localization. Fused images of PET and CT were reviewed. Any standardized uptake values (SUV) reported are maximum values within a volume region of interest, expressed in gm/ml. COMPARISON: PET CT of 06/08/2019 FINDINGS: PET: In the head and neck, no abnormal FDG uptake is appreciated. In the chest, there has been a mixed response to therapy with some areas of decreased tumoral bulk and decreased FDG activity and other areas of increased tumoral bulk with similar to increased FDG activity. The dominant right upper lobe lung mass infiltrating the right hilum and mediastinum shows marked interval decrease in tumor bulk and FDG activity now to max SUV of 6.5, compared with 14.1 as reported previously. Precarinal lymphadenopathy to a max SUV of 15 has decreased in size and FDG activity to max SUV of 4.1 and now shows developing internal calcifications. Left upper lobe retrosternal nodule has decreased in size and FDG activity as well, from a max SUV of 14.4 to max SUV of 7.4. However, other nodules in the lungs bilaterally show increase in size and stable to increased FDG activity. In particular, dominant mass in the posterior right costophrenic sulcus shows max SUV of 11.3, similar to prior max SUV of 11.5 although it now measures 3.3 cm compared with 1.8 cm previously. At the same level in the contralateral posterior costophrenic angle (on the left), a soft tissue nodule has increased in size from 1.7 cm to 3.1 cm and shows similar FDG activity of 10.4 Max SUV (compared with 10.9 previously). There are 2 additional soft tissue nodules, one in the lingula and the other in the anterior basal left lower lobe which have each increased in size and FDG activity. The lingular nodule (image 73 of series 606) now measures 1.8 cm and shows a max SUV of 9.8, increased from 1.2 cm with a max SUV of 6.5 previously. The anterior basal left lower lobe nodule now measures 1.5 cm and shows a max SUV of 10.1, compared with 0.7 cm and a max SUV of 2.4 previously. A hypermetabolic focus in the inferior right hepatic lobe has decreased in FDG activity from a max SUV of 14.6 as reported previously to 2.8 Max SUV currently. There is no other abnormal focus of FDG activity suspicious for metastatic disease. CT: Attenuation correction CT images of the head and neck again show bilateral subdural hygromas. CT images of the chest show tunneled left chest port, increasing calcifications in the right hilar lymph nodes and precarinal lymph nodes, and decreased bulk of bilateral pulmonary masses with residual right upper lobe reticular opacities in the posterior segment. There is centrilobular emphysema and small right pleural effusion which is new from the prior PET/CT. No pneumothorax. Vascular calcifications and a trace amount of pericardial fluid are noted as well. Attenuation correction CT images of the abdomen again reveal changes consistent with previous cholecystectomy as well as the superior right renal 3.2 cm cyst, scattered atherosclerotic calcifications abdominal aorta and there are stimulator in the left gluteal subcutaneous soft tissues with electrodes extending up the thoracic spine as before. Stable wedge compression deformity at T10.. IMPRESSION: There is evidence of a positive treatment response with decrease in bulk and FDG activity both in the primary mass in the right upper lobe, in a different mass in the left upper lobe as well as in the mediastinal lymph nodes, some pulmonary nodules, and in the right hepatic lobe. However, there are additional findings suggesting an increase in size and FDG activity in some other lung nodules, best illustrated in the lingula and in the anterior basal left lower lobe. These could be inflammatory. Attention on follow-up is recommended. Electronically signed by: Kathryn Dill MD (09/07/2019 2:29 PM) [id number]
== END | disposition home or self-care (01) ==
LOC: PETSC 07:37
PROVIDERS: ATTEND Internal Medicine Hematology & Oncology
DX: C34.11 Malignant neoplasm of upper lobe, right bronchus or lung (principal); R91.8 Other nonspecific abnormal finding of lung field
CPT/HCPCS: 78815; A9552

== ENCOUNTER → 2019-09-13 | Outpatient (CLI) | payer BC ==
[2019-08-23 11:56] VITALS: BP 171/89
[2019-09-13 08:43] LABS: BASO % 0 % (0-3); EOS # 0.2 x10^3/uL (0.0-0.7); EOS % 3 % (0-3); HEMATOCRIT 38.3 % (36.0-47.0); HEMOGLOBIN 13.1 g/dL (12.0-15.5); LYMPH # 0.5 x10^3/uL (1.0-4.8); LYMPH % 8 % (24-48); MEAN CORPUSCULAR HEMOGLOBIN 31 pg (25-35); MEAN CORPUSCULAR HGB CONC 34 g/dL (31-37); MEAN CORPUSCULAR VOLUME 91 fL (79-100); MONO # 0.5 x10^3/uL (0.0-1.1); MONO % 7 % (0-9); NEUT # 5.4 x10^3/uL (1.8-7.7); NEUT % 81 % (31-73); PLATELET COUNT 258 x10^3/uL (140-400); RED BLOOD COUNT 4.22 x10^6/uL (3.50-5.40); RED CELL DISTRIBUTION WIDTH 18.2 % (11.5-14.5); WHITE BLOOD COUNT 6.6 x10^3/uL (4.0-11.0)
[2019-09-13 09:02] LABS: ALBUMIN 2.6 g/dL (3.4-5.0); ALBUMIN/GLOBULIN RATIO 0.6 (1.0-1.7); CREATININE 0.5 mg/dL (0.6-1.0); GFR 122.7; TOTAL BILIRUBIN 0.4 mg/dL (0.2-1.0); TOTAL PROTEIN 6.8 g/dL (6.4-8.2)
[2019-09-13 09:11] LABS: POTASSIUM 2.7 mmol/L (3.5-5.1)
== END ==
LOC: ONCLAB 08:32
PROVIDERS: ATTEND Internal Medicine Hematology & Oncology
DX: C34.11 Malignant neoplasm of upper lobe, right bronchus or lung (principal)
CPT/HCPCS: 36415; 80053; 85025; 87493

== ENCOUNTER → 2019-09-18 | Outpatient (CLI) | payer BC ==
[2019-08-23 11:56] VITALS: BP 171/89
[2019-09-18 09:12] LABS: CALCIUM 9.4 mg/dL (8.5-10.1); CREATININE 0.7 mg/dL (0.6-1.0); GFR 83.2; POTASSIUM 4.9 mmol/L (3.5-5.1)
== END | disposition home or self-care (01) ==
LOC: ONCLAB 08:40
PROVIDERS: ATTEND Internal Medicine Hematology & Oncology
DX: C34.11 Malignant neoplasm of upper lobe, right bronchus or lung (principal)
CPT/HCPCS: 36415; 80048

== ENCOUNTER → 2019-09-20 | Outpatient (CLI) | payer BC ==
[2019-08-23 11:56] VITALS: BP 171/89
[2019-09-20 09:03] LABS: BASO % 0 % (0-3); EOS # 0.1 x10^3/uL (0.0-0.7); EOS % 2 % (0-3); HEMATOCRIT 38.2 % (36.0-47.0); HEMOGLOBIN 12.4 g/dL (12.0-15.5); LYMPH # 0.6 x10^3/uL (1.0-4.8); LYMPH % 6 % (24-48); MEAN CORPUSCULAR HEMOGLOBIN 30 pg (25-35); MEAN CORPUSCULAR HGB CONC 33 g/dL (31-37); MEAN CORPUSCULAR VOLUME 92 fL (79-100); MONO # 0.6 x10^3/uL (0.0-1.1); MONO % 6 % (0-9); NEUT # 8.4 x10^3/uL (1.8-7.7); NEUT % 86 % (31-73); PLATELET COUNT 278 x10^3/uL (140-400); RED BLOOD COUNT 4.15 x10^6/uL (3.50-5.40); RED CELL DISTRIBUTION WIDTH 18.3 % (11.5-14.5); WHITE BLOOD COUNT 9.7 x10^3/uL (4.0-11.0)
[2019-09-20 09:14] LABS: CALCIUM 8.9 mg/dL (8.5-10.1); GFR 55.1
[2019-09-20 09:21] LABS: ALBUMIN 2.6 g/dL (3.4-5.0); ALBUMIN/GLOBULIN RATIO 0.7 (1.0-1.7); TOTAL BILIRUBIN 0.3 mg/dL (0.2-1.0); TOTAL PROTEIN 6.1 g/dL (6.4-8.2)
[2019-09-20 10:13] LABS: % EOS 1 % (0-5); % LYMPHS 12 % (24-48); % MONOS 5 % (0-10); % SEGS 82 % (35-66); PLT ESTIMATE ADEQUATE (ADEQUATE)
== END | disposition home or self-care (01) ==
LOC: ONCLAB 08:46
PROVIDERS: ATTEND Internal Medicine Hematology & Oncology
DX: C34.11 Malignant neoplasm of upper lobe, right bronchus or lung (principal)
CPT/HCPCS: 36415; 80053; 85007; 85025

== ENCOUNTER → 2019-09-27 | Outpatient (CLI) | payer BC ==
[2019-09-27 09:45] LABS: BASO % 0 % (0-3); EOS # 0.3 x10^3/uL (0.0-0.7); EOS % 6 % (0-3); HEMATOCRIT 36.5 % (36.0-47.0); HEMOGLOBIN 12.4 g/dL (12.0-15.5); LYMPH # 0.4 x10^3/uL (1.0-4.8); LYMPH % 9 % (24-48); MEAN CORPUSCULAR HEMOGLOBIN 31 pg (25-35); MEAN CORPUSCULAR HGB CONC 34 g/dL (31-37); MEAN CORPUSCULAR VOLUME 91 fL (79-100); MONO # 0.2 x10^3/uL (0.0-1.1); MONO % 5 % (0-9); NEUT % 81 % (31-73); PLATELET COUNT 165 x10^3/uL (140-400); RED BLOOD COUNT 4.02 x10^6/uL (3.50-5.40); RED CELL DISTRIBUTION WIDTH 17.3 % (11.5-14.5)
[2019-09-27 09:54] LABS: CALCIUM 9.3 mg/dL (8.5-10.1); CREATININE 0.5 mg/dL (0.6-1.0); GFR 122.7; POTASSIUM 3.6 mmol/L (3.5-5.1)
[2019-09-27 10:00] LABS: ALBUMIN 2.7 g/dL (3.4-5.0); ALBUMIN/GLOBULIN RATIO 0.7 (1.0-1.7); TOTAL BILIRUBIN 0.8 mg/dL (0.2-1.0); TOTAL PROTEIN 6.6 g/dL (6.4-8.2)
== END | disposition home or self-care (01) ==
LOC: ONCLAB 09:24
PROVIDERS: ATTEND Internal Medicine Hematology & Oncology
DX: C34.11 Malignant neoplasm of upper lobe, right bronchus or lung (principal)
CPT/HCPCS: 36415; 80053; 85025

== ENCOUNTER → 2019-10-09 | Outpatient (CLI) | payer BC ==
[~2019-10-09] MED LIST changes: +REGADENOSON 0.4 MG/5 ML DISP.SYRIN. IV ONE
--- NOTE | 2019-10-09 17:00 | RAD ---
MR#: [id number] Date of Study: 10/09/2019 Ordering Physician: ROHINI BRIGGS, Referring Physician: TIARA WHARTON Tech: RT Rich Rhoades) (N) APPROVED REPORT Test Type: Pharmacological Stress Nurse/Tech: Destinee Cohen R.N. Test Indications: elevated troponin Cardiac History: htn,smoker, chemo Medications: See Electronic Medical Record Medical History: See Electronic Medical Record Resting Heart Rate: 50 bpm Resting Blood Pressure: 108/70mmHg Pretest Chest Pain: No chest pain Nurse/Tech Notes lungs CTA but deminished, S1S2 Consent: The procedure was explained to the patient in lay terms. Informed consent was witnessed. Guilherme eout was entered into [employer]. History and Stress Test performed by RT Rich Rhoades) (N) Pharm. Details Pharmacologic stress testing was performed using 0.4mg per 5ml of regadenoson given intravenously ove r 7-10 seconds. Stress Symptoms SOA POST EXERCISE Reason for Termination: Infusion complete Max HR: 67 bpm Max Blood Pressure: 144/58mmHg Blood Pressure response to exercise: Normal blood pressure response during stress. Heart Rate response to exercise: wnl Chest Pain: No. Arrhythmia: No. ST Change: No. INTERPRETATION Stress EKG Conclusion: The resting EKG shows a sinus bradycardia with minimal nonspecific ST segment changes. The stress EKG shows no significant changes from baseline. No EKG evidence of stress-induced ischemia. Imaging Protocol IMAGE PROTOCOL: Rest Tc-99m/stress Tc-99m 1 day Rest: Stress: Viability: Radiopharm.Tc99m [id number] Sestamibi Dose10.3mCi 31mCi Duration 13min. 13min. Img Date 10/09/2019 10/09/2019 Inj-Img [id number]. 60min. Rest Admin Site:IV - Right HandAdministrator: RT Rich Rhoades)(N) Stress Admin Site: IV - Right HandAdministrator: RT Rich Rhoades)(N) STRESS DATA End Diast. Vol.47.0mlLVEDV index BSA35.0ml End Syst. Vol.6.0mlLVESV index BSA4.0ml Myocardial Mass92.0gEject. Pxtkbpjn51.0% Stress Scores Regional WT2.00Summed WT24.00 Regional WM0.00Summed WM1.00 LV Perfusion The stress scans showed no significant defects. The rest scans showed no significant defects. Nuclear imaging shows no reversible ischemia or infarct. Wall Motion Normal left ventricular systolic function with no regional wall motion abnormalities and an ejection fraction of greater than 70%. LV Perf. Quant 17 Seg. SSS0.00 17 Seg. SRS3.00 17 Seg. SDS0.00 Stress Defect Extent (% LAD)0.00Rest Defect Extent (% LAD)9.40Rev. Defect Extent (% LAD)0.00 Stress Defect Extent (% LCX) 0.00Rest Defect Extent (% LCX)0.00Rev. Defect Extent (% LCX)0.00 Stress Defect Extent (% RCA)0.00Rest Defect Extent (% RCA)0.00Rev. Defect Extent (% RCA)0.00 Stress Defect Extent (% GAURAV)0.00Rest Defect Extent (% GAURAV)5.40Rev. Defect Extent (% GAURAV)0.00 Conclusion 1. No EKG evidence of stress-induced ischemia. 2. Nuclear imaging shows no reversible ischemia or infarct. 3. Left ventricular systolic function is normal with an ejection fraction of greater than 70%. 4. Low risk Lexiscan nuclear stress test. Signed by : Pancho Montero MD Electronically Approved : 10/09/2019 16:59:48
== END | disposition home or self-care (01) ==
LOC: NM 08:45
PROVIDERS: ATTEND Internal Medicine Cardiovascular Disease
DX: I10 Essential (primary) hypertension (principal); R79.89 Other specified abnormal findings of blood chemistry; F17.200 Nicotine dependence, unspecified, uncomplicated
CPT/HCPCS: 78452; 93017; A9500; J2785

== ENCOUNTER → 2019-10-11 | Outpatient (CLI) | payer BC ==
[~2019-10-11] MED LIST changes: -REGADENOSON 0.4 MG/5 ML DISP.SYRIN. IV ONE
[2019-10-11 08:45] LABS: BASO % 0 % (0-3); EOS # 0.1 x10^3/uL (0.0-0.7); EOS % 1 % (0-3); HEMATOCRIT 34.7 % (36.0-47.0); HEMOGLOBIN 11.6 g/dL (12.0-15.5); LYMPH # 0.3 x10^3/uL (1.0-4.8); LYMPH % 8 % (24-48); MEAN CORPUSCULAR HEMOGLOBIN 32 pg (25-35); MEAN CORPUSCULAR HGB CONC 34 g/dL (31-37); MEAN CORPUSCULAR VOLUME 95 fL (79-100); MONO # 0.5 x10^3/uL (0.0-1.1); MONO % 13 % (0-9); NEUT # 2.9 x10^3/uL (1.8-7.7); NEUT % 77 % (31-73); PLATELET COUNT 300 x10^3/uL (140-400); RED BLOOD COUNT 3.67 x10^6/uL (3.50-5.40); RED CELL DISTRIBUTION WIDTH 18.2 % (11.5-14.5); WHITE BLOOD COUNT 3.8 x10^3/uL (4.0-11.0)
[2019-10-11 08:49] LABS: CALCIUM 8.9 mg/dL (8.5-10.1); CREATININE 0.8 mg/dL (0.6-1.0); GFR 71.3; POTASSIUM 4.1 mmol/L (3.5-5.1)
[2019-10-11 08:56] LABS: ALBUMIN 2.8 g/dL (3.4-5.0); ALBUMIN/GLOBULIN RATIO 0.8 (1.0-1.7); TOTAL BILIRUBIN 0.4 mg/dL (0.2-1.0); TOTAL PROTEIN 6.4 g/dL (6.4-8.2)
[2019-10-11 09:15] LABS: MAGNESIUM 1.7 mg/dL (1.8-2.4)
[2019-10-11 10:49] LABS: % LYMPHS 9 % (24-48); % MONOS 13 % (0-10); % SEGS 78 % (35-66); ANISOCYTOSIS SLIGHT; PLT ESTIMATE ADEQUATE (ADEQUATE)
== END | disposition home or self-care (01) ==
LOC: ONCLAB 08:22
PROVIDERS: ATTEND Physician Assistant
DX: C34.11 Malignant neoplasm of upper lobe, right bronchus or lung (principal)
CPT/HCPCS: 36415; 80053; 83735; 85007; 85025

== ENCOUNTER → 2019-10-18 | Outpatient (CLI) | payer BC ==
[2019-10-18 09:41] LABS: BASO % 0 % (0-3); EOS % 2 % (0-3); HEMATOCRIT 32.4 % (36.0-47.0); HEMOGLOBIN 10.9 g/dL (12.0-15.5); LYMPH # 0.2 x10^3/uL (1.0-4.8); LYMPH % 9 % (24-48); MEAN CORPUSCULAR HEMOGLOBIN 32 pg (25-35); MEAN CORPUSCULAR HGB CONC 34 g/dL (31-37); MEAN CORPUSCULAR VOLUME 94 fL (79-100); MONO # 0.3 x10^3/uL (0.0-1.1); MONO % 10 % (0-9); NEUT % 79 % (31-73); PLATELET COUNT 139 x10^3/uL (140-400); RED BLOOD COUNT 3.45 x10^6/uL (3.50-5.40); RED CELL DISTRIBUTION WIDTH 17.4 % (11.5-14.5); WHITE BLOOD COUNT 2.6 x10^3/uL (4.0-11.0)
[2019-10-18 09:49] LABS: CALCIUM 9.2 mg/dL (8.5-10.1); CREATININE 0.5 mg/dL (0.6-1.0); GFR 122.7; POTASSIUM 3.8 mmol/L (3.5-5.1)
[2019-10-18 09:55] LABS: ALBUMIN 2.9 g/dL (3.4-5.0); ALBUMIN/GLOBULIN RATIO 0.8 (1.0-1.7); TOTAL BILIRUBIN 0.4 mg/dL (0.2-1.0); TOTAL PROTEIN 6.4 g/dL (6.4-8.2)
== END | disposition home or self-care (01) ==
LOC: ONCLAB 09:25
PROVIDERS: ATTEND Internal Medicine Hematology & Oncology
DX: C34.11 Malignant neoplasm of upper lobe, right bronchus or lung (principal)
CPT/HCPCS: 36415; 80053; 85025

== ENCOUNTER → 2019-11-01 | Outpatient (CLI) | payer BC ==
[2019-11-01 11:15] LABS: BASO % 0 % (0-3); EOS % 1 % (0-3); HEMATOCRIT 31.8 % (36.0-47.0); HEMOGLOBIN 10.8 g/dL (12.0-15.5); LYMPH # 0.2 x10^3/uL (1.0-4.8); LYMPH % 7 % (24-48); MEAN CORPUSCULAR HEMOGLOBIN 33 pg (25-35); MEAN CORPUSCULAR HGB CONC 34 g/dL (31-37); MEAN CORPUSCULAR VOLUME 96 fL (79-100); MONO # 0.4 x10^3/uL (0.0-1.1); MONO % 15 % (0-9); NEUT # 2.1 x10^3/uL (1.8-7.7); NEUT % 77 % (31-73); PLATELET COUNT 140 x10^3/uL (140-400); RED BLOOD COUNT 3.32 x10^6/uL (3.50-5.40); RED CELL DISTRIBUTION WIDTH 19.8 % (11.5-14.5); WHITE BLOOD COUNT 2.8 x10^3/uL (4.0-11.0)
[2019-11-01 11:28] LABS: CALCIUM 9.5 mg/dL (8.5-10.1); CREATININE 0.7 mg/dL (0.6-1.0); GFR 83.2; POTASSIUM 5.4 mmol/L (3.5-5.1)
[2019-11-01 11:34] LABS: ALBUMIN 2.9 g/dL (3.4-5.0); ALBUMIN/GLOBULIN RATIO 0.8 (1.0-1.7); TOTAL BILIRUBIN 0.3 mg/dL (0.2-1.0); TOTAL PROTEIN 6.6 g/dL (6.4-8.2)
[2019-11-01 12:27] LABS: % BANDS 2 % (0-9); % EOS 1 % (0-5); % LYMPHS 11 % (24-48); % MONOS 10 % (0-10); % SEGS 76 % (35-66)
[2019-11-01 12:28] LABS: ANISOCYTOSIS SLIGHT; OVALOCYTES FEW; PLT ESTIMATE ADEQUATE (ADEQUATE); POLYCHROMASIA SLIGHT
== END | disposition home or self-care (01) ==
LOC: ONCLAB 08:52
PROVIDERS: ATTEND Internal Medicine Hematology & Oncology
DX: C34.11 Malignant neoplasm of upper lobe, right bronchus or lung (principal)
CPT/HCPCS: 36415; 80053; 85007; 85025

== ENCOUNTER → 2019-11-22 | Outpatient (CLI) | payer BC ==
[2019-11-22 09:48] LABS: BASO % 0 % (0-3); EOS % 1 % (0-3); HEMATOCRIT 29.1 % (36.0-47.0); LYMPH # 0.3 x10^3/uL (1.0-4.8); LYMPH % 7 % (24-48); MEAN CORPUSCULAR HEMOGLOBIN 33 pg (25-35); MEAN CORPUSCULAR HGB CONC 34 g/dL (31-37); MEAN CORPUSCULAR VOLUME 97 fL (79-100); MONO # 0.4 x10^3/uL (0.0-1.1); MONO % 10 % (0-9); NEUT # 3.6 x10^3/uL (1.8-7.7); NEUT % 82 % (31-73); PLATELET COUNT 192 x10^3/uL (140-400); RED BLOOD COUNT 3.01 x10^6/uL (3.50-5.40); RED CELL DISTRIBUTION WIDTH 23.2 % (11.5-14.5); WHITE BLOOD COUNT 4.4 x10^3/uL (4.0-11.0)
[2019-11-22 09:57] LABS: CALCIUM 9.1 mg/dL (8.5-10.1); CREATININE 0.7 mg/dL (0.6-1.0); GFR 83.2; POTASSIUM 3.2 mmol/L (3.5-5.1)
[2019-11-22 10:03] LABS: ALBUMIN 2.9 g/dL (3.4-5.0); ALBUMIN/GLOBULIN RATIO 0.8 (1.0-1.7); TOTAL BILIRUBIN 0.5 mg/dL (0.2-1.0); TOTAL PROTEIN 6.7 g/dL (6.4-8.2)
[2019-11-22 11:25] LABS: % BANDS 3 % (0-9); % BASOS 1 % (0-3); % LYMPHS 9 % (24-48); % MONOS 6 % (0-10); % SEGS 81 % (35-66); PLT ESTIMATE ADEQUATE (ADEQUATE)
== END ==
LOC: ONCLAB 09:24
PROVIDERS: ATTEND Internal Medicine Hematology & Oncology
DX: C34.11 Malignant neoplasm of upper lobe, right bronchus or lung (principal)
CPT/HCPCS: 36415; 80053; 85007; 85025

== ENCOUNTER → 2019-11-28 | Outpatient (CLI) | payer BC ==
[~2019-11-28] MED LIST changes: +CONTRAST GIVEN. MC PRN; +IOHEXOL 300 MG/ML 100ML VIAL. IV ONE
--- NOTE | 2019-11-28 10:48 | RAD ---
EXAM: CT head with and without contrast INDICATION: Lung cancer, headache, unable to get MRI. Evaluate for metastatic disease. COMPARISON: CT head 08/23/2019 TECHNIQUE: Axial CT imaging through the head before and after administration of 70 mL Omnipaque 300 intravenous contrast. Coronal reformats were obtained. One or more of the following individualized dose reduction techniques were utilized for this examination: 1. Automated exposure control 2. Adjustment of the mA and/or kV according to patient size 3. Use of iterative reconstruction technique. FINDINGS: The ventricles and sulci are mildly enlarged, reflecting age-related volume loss. There is prominence of CSF space anteriorly and at the vertex, unchanged. Gutiérrez-white matter differentiation is maintained. There is no intracranial hemorrhage, or acute infarct. No enhancing mass, evidence of edema, or midline shift. Basal cisterns are clear. The skull and scalp are intact. Paranasal sinuses and mastoid air cells are clear. Globes and orbits are intact.. IMPRESSION: 1. No acute intracranial abnormality or obvious intracranial metastatic disease. CT is not sensitive to detect small lesions. 2. Unchanged mild volume loss. Electronically signed by: Kat Pryor MD (11/28/2019 10:45 AM) [id number]
== END ==
LOC: CT 10:03
PROVIDERS: ATTEND Internal Medicine Hematology & Oncology
DX: C34.11 Malignant neoplasm of upper lobe, right bronchus or lung (principal); G93.89 Other specified disorders of brain; I51.7 Cardiomegaly
CPT/HCPCS: 70470; Q9967

== ENCOUNTER → 2019-12-07 | Outpatient (CLI) | payer BC ==
[~2019-12-07] MED LIST changes: -CONTRAST GIVEN. MC PRN; -IOHEXOL 300 MG/ML 100ML VIAL. IV ONE
[2019-12-07 09:05] LABS: BASO % 0 % (0-3); EOS # 0.1 x10^3/uL (0.0-0.7); EOS % 1 % (0-3); HEMATOCRIT 32.2 % (36.0-47.0); LYMPH # 0.5 x10^3/uL (1.0-4.8); LYMPH % 11 % (24-48); MEAN CORPUSCULAR HEMOGLOBIN 34 pg (25-35); MEAN CORPUSCULAR HGB CONC 34 g/dL (31-37); MEAN CORPUSCULAR VOLUME 101 fL (79-100); MONO # 0.5 x10^3/uL (0.0-1.1); MONO % 11 % (0-9); NEUT # 3.7 x10^3/uL (1.8-7.7); NEUT % 77 % (31-73); PLATELET COUNT 170 x10^3/uL (140-400); RED CELL DISTRIBUTION WIDTH 22.4 % (11.5-14.5); WHITE BLOOD COUNT 4.8 x10^3/uL (4.0-11.0)
[2019-12-07 09:24] LABS: CALCIUM 9.3 mg/dL (8.5-10.1); CREATININE 0.7 mg/dL (0.6-1.0); GFR 83.2; POTASSIUM 3.6 mmol/L (3.5-5.1)
[2019-12-07 09:33] LABS: ALBUMIN 2.4 g/dL (3.4-5.0); ALBUMIN/GLOBULIN RATIO 0.6 (1.0-1.7); TOTAL BILIRUBIN 0.4 mg/dL (0.2-1.0); TOTAL PROTEIN 6.4 g/dL (6.4-8.2)
[2019-12-07 11:14] LABS: ANISOCYTOSIS PRESENT; PLT ESTIMATE ADEQUATE (ADEQUATE); POLYCHROMASIA PRESENT
== END ==
LOC: ONCLAB 08:50
PROVIDERS: ATTEND Internal Medicine Hematology & Oncology
DX: C34.11 Malignant neoplasm of upper lobe, right bronchus or lung (principal)
CPT/HCPCS: 36415; 80053; 85025

== ENCOUNTER → 2019-12-12 | Outpatient (CLI) | payer BC ==
[~2019-12-12] MED LIST changes: +IOHEXOL 240 MG/ML 50ML VIAL. PO ONE; +IOHEXOL 300 MG/ML 100ML VIAL. IV ONE
--- NOTE | 2019-12-12 12:32 | RAD ---
EXAM: Chest, abdomen and pelvis CT with intravenous contrast. HISTORY: Lung cancer restaging. TECHNIQUE: Computed tomographic images of the chest, abdomen and pelvis were obtained following the administration of intravenous contrast. Multiplanar reformatting was performed. *One or more of the following individualized dose reduction techniques were utilized for this examination: 1. Automated exposure control. 2. Adjustment of the mA and/or kV according to patient size. 3. Use of iterative reconstruction technique. COMPARISON: PET/CT dated 09/07/2019. FINDINGS: Chest: There is right suprahilar masslike opacity extending to the lateral right upper thoracic pleura and associated with architectural distortion and attenuation of the traversing pulmonary vessels and bronchi. This measures approximately 7 cm. There is a spiculated left suprahilar nodule measuring 2.5 cm. There is emphysema with patchy areas of pleural parenchymal scarring. There is a small right pleural effusion and there is bilateral posterior dependent and basilar atelectasis. There has been interval decrease in a 3 mm pleural-based nodular opacity within the posterior lateral left lower lobe, previously measuring abdomen. The multiple additional pulmonary nodules demonstrated on the CT dated 06/28/2019 and nearly completely resolved. There is a residual nodule at the left lung base measuring 1.3 cm, compared to a measurement of 3.5 cm on the study performed 06/28/2019. There is right hemithorax volume loss with rightward mediastinal shift. The heart is normal in size. There is a aortic ductus diverticulum. There is coronary artery atherosclerosis. There are calcified granulomas within the right mediastinum and right paratracheal region. No pathologically enlarged noncalcified lymph node is seen. There is a left port catheter in expected position. There is degenerative change throughout the thoracic spine. There is a severe chronic compression fracture with slight resolution of the cortex at T10 and moderate chronic compression fracture with minimal retropulsion of the cortex at T12. There are dorsal column stimulator leads turning at T8. Abdomen and pelvis: There is a 1.1 cm ill-defined hypodense lesion within the inferior right hepatic lobe. There is biliary ductal dilatation likely due to reservoir effect status post cholecystectomy. The pancreas, spleen and adrenal glands are unremarkable. There is a simple right renal cyst measuring 4.0 cm follow-up is routinely recommended for simple renal cysts. There is cortical scarring within the anterior mid zone of the left kidney. There is no hydronephrosis. There is a moderate amount of stool throughout the colon. There is no evidence of bowel obstruction or abnormal bowel wall thickening. The bladder is nearly empty. The uterus and adnexal regions are unremarkable. There is heavily calcified atherosclerotic plaque with a normal caliber abdominal aorta and iliac bifurcation. There is mild body wall edema and stranding throughout the mesentery. There is a generator within the left buttock with intrathecal leads extending to terminate over the mid thoracic central canal. There are degenerative changes throughout the spine and both hips. There is a moderate chronic compression fracture of T12 and mild chronic anterior wedging of L4. IMPRESSION: 1. Right suprahilar mass with associated architectural distortion and surrounding groundglass, measuring approximately 7 cm in maximum dimension. This is slightly decreased compared to the prior PET/CT dated 09/07/2019, favoring interval therapy response. 2. Slight interval decrease in the size of a spiculated left suprahilar nodule measuring 2.5, compared to a prior measurement of 3.0 cm. The imaging appearance is also concerning for primary bronchogenic neoplasm. 3. Interval decrease in previously demonstrated mediastinal and hilar lymphadenopathy. This favors interval therapy response. 4. Complete to near complete resolution of the multiple additional previously demonstrated pulmonary nodules. For reference purposes, a previously demonstrated 3.5 cm left basilar nodule now measures 1.3 cm. This is consistent with therapy response. 5. Emphysema with multifocal pleural parenchymal scarring and atelectasis. There is a small right pleural effusion. 6. 1.1 cm metastasis within the inferior right hepatic lobe. This is significantly decreased compared to a study performed 06/28/2019, consistent with interval therapy response. No new liver lesion is seen. Electronically signed by: Becky Nunes MD (12/12/2019 12:29 PM) [id number]
== END ==
LOC: CT 10:26
PROVIDERS: ATTEND Internal Medicine Hematology & Oncology
DX: C34.11 Malignant neoplasm of upper lobe, right bronchus or lung (principal); K76.9 Liver disease, unspecified; J43.9 Emphysema, unspecified; J90 Pleural effusion, not elsewhere classified; J98.11 Atelectasis; R91.1 Solitary pulmonary nodule; K57.90 Diverticulosis of intestine, part unspecified, without perforation or abscess without bleeding; I25.10 Atherosclerotic heart disease of native coronary artery without angina pectoris; M47.814 Spondylosis without myelopathy or radiculopathy, thoracic region; M48.54XA Collapsed vertebra, not elsewhere classified, thoracic region, initial encounter for fracture; Z90.49 Acquired absence of other specified parts of digestive tract; N28.1 Cyst of kidney, acquired; I70.0 Atherosclerosis of aorta; M16.0 Bilateral primary osteoarthritis of hip; M47.819 Spondylosis without myelopathy or radiculopathy, site unspecified
CPT/HCPCS: 71260; 74177; Q9966; Q9967

== ENCOUNTER → 2019-12-21 | Outpatient (CLI) | payer BC ==
[~2019-12-21] MED LIST changes: -IOHEXOL 240 MG/ML 50ML VIAL. PO ONE; -IOHEXOL 300 MG/ML 100ML VIAL. IV ONE
[2019-12-21 09:16] LABS: BASO % 0 % (0-3); EOS % 0 % (0-3); HEMATOCRIT 26.5 % (36.0-47.0); LYMPH # 0.2 x10^3/uL (1.0-4.8); LYMPH % 7 % (24-48); MEAN CORPUSCULAR HEMOGLOBIN 35 pg (25-35); MEAN CORPUSCULAR HGB CONC 34 g/dL (31-37); MEAN CORPUSCULAR VOLUME 103 fL (79-100); MONO # 0.3 x10^3/uL (0.0-1.1); MONO % 14 % (0-9); NEUT # 1.9 x10^3/uL (1.8-7.7); NEUT % 78 % (31-73); PLATELET COUNT 73 x10^3/uL (140-400); RED BLOOD COUNT 2.58 x10^6/uL (3.50-5.40); RED CELL DISTRIBUTION WIDTH 17.9 % (11.5-14.5); WHITE BLOOD COUNT 2.4 x10^3/uL (4.0-11.0)
[2019-12-21 09:35] LABS: CALCIUM 9.4 mg/dL (8.5-10.1); CREATININE 0.6 mg/dL (0.6-1.0); GFR 99.4; POTASSIUM 3.2 mmol/L (3.5-5.1)
[2019-12-21 09:40] LABS: ALBUMIN 2.5 g/dL (3.4-5.0); ALBUMIN/GLOBULIN RATIO 0.6 (1.0-1.7); TOTAL BILIRUBIN 0.4 mg/dL (0.2-1.0); TOTAL PROTEIN 6.5 g/dL (6.4-8.2)
[2019-12-21 10:27] LABS: % BANDS 4 % (0-9); % LYMPHS 4 % (24-48); % MONOS 12 % (0-10); % SEGS 80 % (35-66)
[2019-12-21 10:28] LABS: ANISOCYTOSIS PRESENT; OVALOCYTES FEW; PLT ESTIMATE DECREASED (ADEQUATE)
[2019-12-21 10:29] LABS: POLYCHROMASIA SLIGHT; TEAR DROP CELLS OCC
== END ==
LOC: ONCLAB 08:52
PROVIDERS: ATTEND Internal Medicine Hematology & Oncology
DX: C34.11 Malignant neoplasm of upper lobe, right bronchus or lung (principal)
CPT/HCPCS: 36415; 80053; 85007; 85025

== ENCOUNTER → 2019-12-28 | Outpatient (CLI) | payer BC ==
[2019-12-28 08:44] LABS: BASO % 0 % (0-3); EOS % 1 % (0-3); HEMATOCRIT 30.3 % (36.0-47.0); HEMOGLOBIN 10.3 g/dL (12.0-15.5); LYMPH # 0.3 x10^3/uL (1.0-4.8); LYMPH % 11 % (24-48); MEAN CORPUSCULAR HEMOGLOBIN 35 pg (25-35); MEAN CORPUSCULAR HGB CONC 34 g/dL (31-37); MEAN CORPUSCULAR VOLUME 103 fL (79-100); MONO # 0.3 x10^3/uL (0.0-1.1); MONO % 11 % (0-9); NEUT # 2.3 x10^3/uL (1.8-7.7); NEUT % 77 % (31-73); PLATELET COUNT 154 x10^3/uL (140-400); RED BLOOD COUNT 2.95 x10^6/uL (3.50-5.40); RED CELL DISTRIBUTION WIDTH 18.4 % (11.5-14.5)
[2019-12-28 08:58] LABS: CALCIUM 9.2 mg/dL (8.5-10.1); CREATININE 0.6 mg/dL (0.6-1.0); GFR 99.4; POTASSIUM 3.1 mmol/L (3.5-5.1)
[2019-12-28 09:04] LABS: ALBUMIN 2.5 g/dL (3.4-5.0); ALBUMIN/GLOBULIN RATIO 0.7 (1.0-1.7); TOTAL BILIRUBIN 0.4 mg/dL (0.2-1.0)
== END ==
LOC: ONCLAB 08:29
PROVIDERS: ATTEND Internal Medicine Hematology & Oncology
DX: C34.11 Malignant neoplasm of upper lobe, right bronchus or lung (principal)
CPT/HCPCS: 36415; 80053; 85025

== ENCOUNTER → 2020-01-18 | Outpatient (CLI) | payer BC ==
[2020-01-18 09:16] LABS: BASO % 0 % (0-3); EOS % 1 % (0-3); HEMATOCRIT 29.7 % (36.0-47.0); HEMOGLOBIN 9.9 g/dL (12.0-15.5); LYMPH # 0.4 x10^3/uL (1.0-4.8); LYMPH % 8 % (24-48); MEAN CORPUSCULAR HEMOGLOBIN 34 pg (25-35); MEAN CORPUSCULAR HGB CONC 33 g/dL (31-37); MEAN CORPUSCULAR VOLUME 103 fL (79-100); MONO # 0.6 x10^3/uL (0.0-1.1); MONO % 12 % (0-9); NEUT # 3.8 x10^3/uL (1.8-7.7); NEUT % 79 % (31-73); PLATELET COUNT 270 x10^3/uL (140-400); RED BLOOD COUNT 2.88 x10^6/uL (3.50-5.40); RED CELL DISTRIBUTION WIDTH 16.9 % (11.5-14.5); WHITE BLOOD COUNT 4.8 x10^3/uL (4.0-11.0)
[2020-01-18 09:38] LABS: CALCIUM 9.2 mg/dL (8.5-10.1); CREATININE 0.5 mg/dL (0.6-1.0); GFR 122.7; POTASSIUM 3.4 mmol/L (3.5-5.1)
[2020-01-18 09:44] LABS: ALBUMIN 2.4 g/dL (3.4-5.0); ALBUMIN/GLOBULIN RATIO 0.6 (1.0-1.7); TOTAL BILIRUBIN 0.2 mg/dL (0.2-1.0); TOTAL PROTEIN 6.1 g/dL (6.4-8.2)
== END ==
LOC: ONCLAB 09:05
PROVIDERS: ATTEND Internal Medicine Hematology & Oncology
DX: C34.11 Malignant neoplasm of upper lobe, right bronchus or lung (principal)
CPT/HCPCS: 36415; 80053; 85025

== ENCOUNTER → 2020-02-22 | Outpatient (CLI) | payer BC ==
[2020-02-22 08:56] LABS: BASO % 0 % (0-3); EOS % 1 % (0-3); HEMATOCRIT 32.2 % (36.0-47.0); HEMOGLOBIN 10.7 g/dL (12.0-15.5); LYMPH # 0.4 x10^3/uL (1.0-4.8); LYMPH % 10 % (24-48); MEAN CORPUSCULAR HEMOGLOBIN 34 pg (25-35); MEAN CORPUSCULAR HGB CONC 33 g/dL (31-37); MEAN CORPUSCULAR VOLUME 101 fL (79-100); MONO # 0.4 x10^3/uL (0.0-1.1); MONO % 10 % (0-9); NEUT # 3.5 x10^3/uL (1.8-7.7); NEUT % 79 % (31-73); PLATELET COUNT 196 x10^3/uL (140-400); RED CELL DISTRIBUTION WIDTH 18.1 % (11.5-14.5); WHITE BLOOD COUNT 4.4 x10^3/uL (4.0-11.0)
[2020-02-22 09:10] LABS: ALBUMIN 2.2 g/dL (3.4-5.0); ALBUMIN/GLOBULIN RATIO 0.5 (1.0-1.7); CALCIUM 9.2 mg/dL (8.5-10.1); CREATININE 0.7 mg/dL (0.6-1.0); GFR 83.2; TOTAL BILIRUBIN 0.5 mg/dL (0.2-1.0); TOTAL PROTEIN 6.6 g/dL (6.4-8.2)
[2020-02-22 09:14] LABS: POTASSIUM 2.9 mmol/L (3.5-5.1)
== END ==
LOC: ONCLAB 08:17
PROVIDERS: ATTEND Internal Medicine Hematology & Oncology
DX: C34.11 Malignant neoplasm of upper lobe, right bronchus or lung (principal); E06.9 Thyroiditis, unspecified
CPT/HCPCS: 36415; 80053; 84443; 85025

== ENCOUNTER → 2020-03-10 | Outpatient (CLI) | payer BC ==
[~2020-03-10] MED LIST changes: +IOHEXOL 240 MG/ML 50ML VIAL. PO ONE; +IOHEXOL 300 MG/ML 100ML VIAL. PO ONE
--- NOTE | 2020-03-11 10:57 | RAD ---
PQRS Compliance Statement: One or more of the following individualized dose reduction techniques were utilized for this examinat ion: 1. Automated exposure control 2. Adjustment of the mA and/or kV according to patient size 3. Use of iterative reconstruction technique CT CHEST+ABD+PELVIS W Clinical Indication: Reason: NON SMALL CELL LUNG CANCER Comparison: CT chest abdomen and pelvis with contrast December 12, 2019. Technique: Helical CT imaging of the chest, abdomen and pelvis is performed after 75 cc of Omnipaque 300 IV contrast. Oral contrast also administered. Findings: Left chest Port-A-Cath. No central pulmonary embolus. Aortic ductus diverticulum redemonstrated. Ther e is no dissection. There is coronary artery disease. Cardiac size normal, trace pericardial fluid. T here is moderate right pleural effusion, increased from prior study. The large calcification at the r ight hilum is unchanged. Right suprahilar consolidation appears more consolidated. Some of the change is probably due to the pleural effusion. There is a new consolidation in the right lower lobe adjace nt to the pleural effusion. There is increased consolidation in the posterior left lower lobe. Spicul ated nodule in the left upper lobe is stable to slightly smaller measuring 1.4 x 1.5 cm, previously 1 .4 x 1.7 cm. There is centrilobular emphysema. There is trace left pleural effusion. Ill-defined hypodensity in the posterior right hepatic lobe measures 7 mm, previously 1.1 cm. Cholecy stectomy. Extrahepatic duct dilation is unchanged. There is adrenal gland hyperplasia. No hydronephro sis. Severe atherosclerotic calcification of the abdominal aorta and iliac arteries. Stomach unremarkable. No dilated small bowel. Scattered stool in the colon. The urinary bladder is normal. Atrophic uterus. No pelvic free fluid is seen. Left spinal stimulator is redemonstrated. There is degenerative spondylosis of the thoracolumbar spin e. There is chronic compression fracture of the T12 vertebral body. IMPRESSION: 1. There is moderate to large right pleural effusion, increased from prior study. There is new trace left pleural effusion. 2. There are new consolidations in the lateral right lower lobe and in the posterior left lower lobe that may be bronchopneumonia. 3. The right suprahilar mass is more consolidated. 4. The spiculated nodule left suprahilar is stable to slightly smaller. 5. The ill-defined hypodensity in the inferior right hepatic lobe has mildly decreased in size. 6. New small pericardial effusion. Electronically signed by: Liu Schneider MD (03/11/2020 10:55 AM) [id number]
== END ==
LOC: CT 10:00
PROVIDERS: ATTEND Internal Medicine Hematology & Oncology
DX: C34.11 Malignant neoplasm of upper lobe, right bronchus or lung (principal); I31.3 Pericardial effusion (noninflammatory); R91.1 Solitary pulmonary nodule
CPT/HCPCS: 71260; 74177; Q9966; Q9967

== ENCOUNTER → 2020-03-14 | Outpatient (CLI) | payer BC ==
[~2020-03-14] MED LIST changes: -IOHEXOL 240 MG/ML 50ML VIAL. PO ONE; -IOHEXOL 300 MG/ML 100ML VIAL. PO ONE; +OXYC1TAB22 PO; -POLY17PO28 PO; +POLY17PO52 PO
--- NOTE | 2020-03-14 17:56 | RAD ---
RIGHT ANKLE AP, LATERAL, OBLIQUE Clinical Indication: Reason: FOOT PAIN / Comparison: None. Findings: There is no acute fracture or dislocation. Borderline demineralization. There is subtalar arthropathy. The ankle mortise is intact. There is moderate soft tissue swelling of the ankle. IMPRESSION: No acute fracture. Electronically signed by: Liu Schneider MD (03/14/2020 5:53 PM) [id number]
== END ==
LOC: RAD 10:46
PROVIDERS: ATTEND Internal Medicine Hematology & Oncology
DX: C34.11 Malignant neoplasm of upper lobe, right bronchus or lung (principal); M19.071 Primary osteoarthritis, right ankle and foot; M79.89 Other specified soft tissue disorders
CPT/HCPCS: 73610

== ENCOUNTER → 2020-03-14 | Outpatient (CLI) | payer BC ==
[2020-03-14 09:03] LABS: BASO % 1 % (0-3); EOS % 1 % (0-3); HEMATOCRIT 32.3 % (36.0-47.0); HEMOGLOBIN 10.7 g/dL (12.0-15.5); LYMPH # 0.3 x10^3/uL (1.0-4.8); LYMPH % 7 % (24-48); MEAN CORPUSCULAR HEMOGLOBIN 33 pg (25-35); MEAN CORPUSCULAR HGB CONC 33 g/dL (31-37); MEAN CORPUSCULAR VOLUME 99 fL (79-100); MONO # 0.7 x10^3/uL (0.0-1.1); MONO % 14 % (0-9); NEUT # 3.6 x10^3/uL (1.8-7.7); NEUT % 77 % (31-73); PLATELET COUNT 258 x10^3/uL (140-400); RED BLOOD COUNT 3.25 x10^6/uL (3.50-5.40); RED CELL DISTRIBUTION WIDTH 19.7 % (11.5-14.5); WHITE BLOOD COUNT 4.7 x10^3/uL (4.0-11.0)
[2020-03-14 09:33] LABS: ALBUMIN/GLOBULIN RATIO 0.4 (1.0-1.7); CREATININE 0.6 mg/dL (0.6-1.0); GFR 99.4; TOTAL BILIRUBIN 0.4 mg/dL (0.2-1.0); TOTAL PROTEIN 6.5 g/dL (6.4-8.2)
[2020-03-14 09:44] LABS: POTASSIUM 2.9 mmol/L (3.5-5.1)
[2020-03-14 10:56] LABS: % BASOS 1 % (0-3); % LYMPHS 4 % (24-48); % MONOS 11 % (0-10); % SEGS 84 % (35-66)
[2020-03-14 11:05] LABS: PLT ESTIMATE ADEQUATE (ADEQUATE)
[2020-03-14 11:07] LABS: ANISOCYTOSIS SLIGHT
[2020-03-14 11:08] LABS: POLYCHROMASIA SLIGHT
== END ==
LOC: ONCLAB 08:47
PROVIDERS: ATTEND Internal Medicine Hematology & Oncology
DX: C34.11 Malignant neoplasm of upper lobe, right bronchus or lung (principal)
CPT/HCPCS: 36415; 80053; 85007; 85025

== ENCOUNTER → 2020-03-20 | Outpatient (CLI) | payer BC ==
[~2020-03-20] MED LIST changes: -OXYC1TAB22 PO; +POLY17PO28 PO; -POLY17PO52 PO
[2020-03-20 11:37] LABS: BASO % 0 % (0-3); EOS % 0 % (0-3); HEMATOCRIT 35.1 % (36.0-47.0); HEMOGLOBIN 11.3 g/dL (12.0-15.5); LYMPH # 0.4 x10^3/uL (1.0-4.8); LYMPH % 6 % (24-48); MEAN CORPUSCULAR HEMOGLOBIN 32 pg (25-35); MEAN CORPUSCULAR HGB CONC 32 g/dL (31-37); MEAN CORPUSCULAR VOLUME 99 fL (79-100); MONO # 0.9 x10^3/uL (0.0-1.1); MONO % 14 % (0-9); NEUT # 5.1 x10^3/uL (1.8-7.7); NEUT % 80 % (31-73); PLATELET COUNT 181 x10^3/uL (140-400); RED BLOOD COUNT 3.56 x10^6/uL (3.50-5.40); RED CELL DISTRIBUTION WIDTH 19.7 % (11.5-14.5); WHITE BLOOD COUNT 6.4 x10^3/uL (4.0-11.0)
[2020-03-20 11:52] LABS: CALCIUM 9.3 mg/dL (8.5-10.1); CREATININE 0.6 mg/dL (0.6-1.0); GFR 99.4
== END ==
LOC: ONCLAB 11:15
PROVIDERS: ATTEND Internal Medicine Hematology & Oncology
DX: C34.11 Malignant neoplasm of upper lobe, right bronchus or lung (principal)
CPT/HCPCS: 36415; 80048; 85025

== ENCOUNTER → 2020-04-07 | Outpatient (CLI) | payer BC ==
[~2020-04-07] MED LIST changes: +OXYC1TAB22 PO; -POLY17PO28 PO; +POLY17PO52 PO
[2020-04-07 14:41] LABS: BASO % 0 % (0-3); EOS % 0 % (0-3); HEMATOCRIT 34.4 % (36.0-47.0); HEMOGLOBIN 11.4 g/dL (12.0-15.5); LYMPH # 0.3 x10^3/uL (1.0-4.8); LYMPH % 6 % (24-48); MEAN CORPUSCULAR HEMOGLOBIN 32 pg (25-35); MEAN CORPUSCULAR HGB CONC 33 g/dL (31-37); MEAN CORPUSCULAR VOLUME 96 fL (79-100); MONO # 0.5 x10^3/uL (0.0-1.1); MONO % 10 % (0-9); NEUT % 83 % (31-73); PLATELET COUNT 216 x10^3/uL (140-400); RED BLOOD COUNT 3.57 x10^6/uL (3.50-5.40); RED CELL DISTRIBUTION WIDTH 17.7 % (11.5-14.5); WHITE BLOOD COUNT 4.8 x10^3/uL (4.0-11.0)
[2020-04-07 14:56] LABS: CREATININE 0.7 mg/dL (0.6-1.0)
[2020-04-07 15:01] LABS: ALBUMIN 2.1 g/dL (3.4-5.0); ALBUMIN/GLOBULIN RATIO 0.5 (1.0-1.7); TOTAL BILIRUBIN 0.4 mg/dL (0.2-1.0); TOTAL PROTEIN 6.6 g/dL (6.4-8.2)
== END ==
LOC: ONCLAB 14:28
PROVIDERS: ATTEND Internal Medicine Hematology & Oncology
DX: C34.11 Malignant neoplasm of upper lobe, right bronchus or lung (principal)
CPT/HCPCS: 36415; 80053; 85025

== ENCOUNTER → 2020-04-07 | Outpatient (CLI) | payer BC ==
--- NOTE | 2020-04-07 18:04 | RAD ---
EXAM: XR CHEST 2V INDICATION: Reason: NON-SMALL CELL LUNG CANCER DISORDER. ASPIRATION PNEUMONIA. / Spl. Instructions: / History: . TECHNIQUE: PA and lateral COMPARISON: 08/27/2019 FINDINGS: Left chest port remains present with the tip projecting over the mid to distal SVC. Heart is moderately enlarged, similar to prior. Great vessels show aortic calcification and tortuosity similar to prior. Ill-defined opacity at the right hilum is noted with associated volume loss in the right hemithorax. Lungs show interval increase in ill-defined opacities at the left lung base and more diffusely in the right lung involving the upper, mid, and lower lungs. A small right pleural effusion has developed in the interval. No pneumothorax is apparent. No acute or aggressive osseous lesions are seen. Spinal stimulator electrodes are present projecting over the mid thoracic spine as before. IMPRESSION: Interval development of multifocal patchy opacities bilaterally and a small right pleural effusion. C orrelate clinically for any evidence of pneumonia. Electronically signed by: Kathryn Dill MD (04/07/2020 6:01 PM) [id number]
== END ==
LOC: RAD 13:36
PROVIDERS: ATTEND Physician Assistant
DX: C34.11 Malignant neoplasm of upper lobe, right bronchus or lung (principal); J69.0 Pneumonitis due to inhalation of food and vomit; J90 Pleural effusion, not elsewhere classified; E53.9 Vitamin B deficiency, unspecified; F41.1 Generalized anxiety disorder
CPT/HCPCS: 71046

== ENCOUNTER → 2020-04-14 | Outpatient (CLI) | payer BC ==
[~2020-04-14] MED LIST changes: -OXYC1TAB22 PO
[2020-04-14 13:33] LABS: BASO % 0 % (0-3); EOS % 0 % (0-3); HEMATOCRIT 38.8 % (36.0-47.0); HEMOGLOBIN 12.7 g/dL (12.0-15.5); LYMPH # 0.6 x10^3/uL (1.0-4.8); LYMPH % 8 % (24-48); MEAN CORPUSCULAR HEMOGLOBIN 31 pg (25-35); MEAN CORPUSCULAR HGB CONC 33 g/dL (31-37); MEAN CORPUSCULAR VOLUME 94 fL (79-100); MONO # 0.7 x10^3/uL (0.0-1.1); MONO % 9 % (0-9); NEUT # 6.1 x10^3/uL (1.8-7.7); NEUT % 83 % (31-73); PLATELET COUNT 129 x10^3/uL (140-400); RED BLOOD COUNT 4.11 x10^6/uL (3.50-5.40); RED CELL DISTRIBUTION WIDTH 17.5 % (11.5-14.5); WHITE BLOOD COUNT 7.4 x10^3/uL (4.0-11.0)
[2020-04-14 13:54] LABS: ALBUMIN 2.2 g/dL (3.4-5.0); ALBUMIN/GLOBULIN RATIO 0.5 (1.0-1.7); CALCIUM 8.8 mg/dL (8.5-10.1); CREATININE 0.7 mg/dL (0.6-1.0); TOTAL BILIRUBIN 0.8 mg/dL (0.2-1.0); TOTAL PROTEIN 6.8 g/dL (6.4-8.2)
[2020-04-14 13:59] LABS: POTASSIUM 2.4 mmol/L (3.5-5.1)
== END ==
LOC: ONCLAB 12:36
PROVIDERS: ATTEND Internal Medicine Hematology & Oncology
DX: C34.11 Malignant neoplasm of upper lobe, right bronchus or lung (principal); F41.1 Generalized anxiety disorder
CPT/HCPCS: 36415; 80053; 85025; 87070; 87205

== ENCOUNTER → 2020-04-25 | Outpatient (CLI) | payer BC ==
[2020-04-25 13:04] LABS: BASO % 0 % (0-3); EOS % 0 % (0-3); HEMATOCRIT 35.1 % (36.0-47.0); HEMOGLOBIN 11.7 g/dL (12.0-15.5); LYMPH # 0.5 x10^3/uL (1.0-4.8); LYMPH % 9 % (24-48); MEAN CORPUSCULAR HEMOGLOBIN 31 pg (25-35); MEAN CORPUSCULAR HGB CONC 33 g/dL (31-37); MEAN CORPUSCULAR VOLUME 93 fL (79-100); MONO # 0.5 x10^3/uL (0.0-1.1); MONO % 9 % (0-9); NEUT # 4.7 x10^3/uL (1.8-7.7); NEUT % 82 % (31-73); PLATELET COUNT 177 x10^3/uL (140-400); RED BLOOD COUNT 3.77 x10^6/uL (3.50-5.40); RED CELL DISTRIBUTION WIDTH 17.5 % (11.5-14.5); WHITE BLOOD COUNT 5.7 x10^3/uL (4.0-11.0)
[2020-04-25 13:16] LABS: CALCIUM 8.8 mg/dL (8.5-10.1); CREATININE 0.6 mg/dL (0.6-1.0); GFR 99.1; POTASSIUM 3.2 mmol/L (3.5-5.1)
[2020-04-25 13:21] LABS: ALBUMIN/GLOBULIN RATIO 0.5 (1.0-1.7); TOTAL BILIRUBIN 0.3 mg/dL (0.2-1.0); TOTAL PROTEIN 6.4 g/dL (6.4-8.2)
== END ==
LOC: ONCLAB 12:42
PROVIDERS: ATTEND Internal Medicine Hematology & Oncology
DX: C34.11 Malignant neoplasm of upper lobe, right bronchus or lung (principal)
CPT/HCPCS: 36415; 80053; 85025